=== PATIENT | female | born 2000 | race Caucasian/White ===

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

== ENCOUNTER → 2018-07-16 16:42 | Outpatient (CLI) | payer MEDICAID, SELFPAY ==
[2017-12-23 12:08] VITALS: BMI 45.5
[2018-07-16 20:29] LABS: Chlamydia Trachomatis by PCR Negative (Negative); Neisserai gonorrhoeae by PCR Negative (Negative); Probe Check PASS; Sample Adequacy Control PASS; Specimen Processing Control PASS
== END ==
PROVIDERS: Visit Provider Obstetrics & Gynecology
DX: Z11.3 Encounter for screening for infections with a predominantly sexual mode of transmission (principal)
CPT/HCPCS: 87491; 87591

== ENCOUNTER 2018-11-01 11:00 | Outpatient (RCR) | payer MEDICAID, SELFPAY | END 2018-11-02 23:59 | LOC: NS 11:00 | PROVIDERS: Visit Provider Family Medicine | DX: E66.01 Morbid (severe) obesity due to excess calories (principal); Z71.3 Dietary counseling and surveillance | CPT/HCPCS: 97802; 97803 ==

== ENCOUNTER 2018-11-14 19:52 | Emergency (ER) | payer MEDICAID, SELFPAY ==
[2018-11-14 19:56] VITALS: BP 146/78; PULSE 88; RESP 16; TEMP 37.5; O2SAT 96; BMI 37.1
--- NOTE | 2018-11-14 20:11 | ED.DCSUM_ITS ---
- ER Visit Summary Date of Service: 11/14/18 Chief Complaint: Hand rash History of Present Illness: The patient is a 18 F who has a rash on her bilateral hands. Is been there for a month. She states that there is been some drainage coming out of it recently. She states that they do itch. She states that she believes is eczema. She does wear gloves at work which could be contributing to this. She states the drainage was a yellowish color. She denies any fevers. She has never had this before. Physical Examination: Vital signs reviewed. Bilateral hand exam reveals eczema on the fingers and the palm on the left hand. There are cellulitic changes with redness. There is no drainage currently. There are no abscesses. They are diffusely tender to palpation. Test Results: None performed Emergency Department Course and Treatment: Patient will be given Keflex. There are no abscesses that need to be drained at this time. Patient will be discharged with some hydrocortisone cream to put directly on this when the infection clears. She will need to follow-up with a web press operator assistant as well. Treatment Plan: [] Disposition: Discharge Impression: Bilateral hand cellulitis Bilateral hand eczema This note was generated with [employer] dictation software. It may contain incorrect words, spelling, and punctuation that were not noted in review of the chart prior to signing
--- NOTE | 2018-11-14 20:11 | ED.DEP ---
ED Disposition - Plan for ED Patient: Disposition: Home or Assisted Living Instructions: ED Dermatitis Atopic Eczema Prescriptions: Cephalexin [Keflex] 500 mg PO Q12 #14 cap Hydrocortisone 1% Crm [Hytone] 1 applic TOPICAL BID #1 tube Referrals: Octavio Oliva MD [STAFF PHYSICIAN] -
[2018-11-14] MEDS: Cephalexin 250 MG Capsule 500 MG PO (20:17)
[2018-11-14 20:19] VITALS: BP 146/78
== END 2018-11-14 20:22 | disposition home or self-care (01) ==
LOC: ED 20:21
PROVIDERS: Emergency Provider Emergency Medicine
DX: L03.114 Cellulitis of left upper limb (principal); L03.113 Cellulitis of right upper limb; L30.9 Dermatitis, unspecified; Z72.0 Tobacco use
CPT/HCPCS: 99283

== ENCOUNTER 2018-11-21 18:23 | Emergency (ER) | payer MEDICAID, SELFPAY ==
[2018-11-21 18:23] VITALS: BP 149/70; PULSE 83; RESP 16; TEMP 36.4; O2SAT 98; BMI 36.3
--- NOTE | 2018-11-21 18:41 | ED.VIS.EYE ---
History of Present Illness Chief Complaint: Eye Problem Informant: Patient Location: Right Eye Onset: Today - JPTA, Hours - 1 Context: Sudden Onset - while walking into store; very windy outside Timing: Continuous Current Severity: Moderate Maximum Severity: Moderate Worsened by: trying to keep eye open Relieved by: closing eye Associated Symptoms - Eyes: Foreign body sensation, Photophobia, Redness History of injury: Uncertain Visual correction: None Narrative: No vision changes or discharge. Sudden onset symptoms, foreign body sensation is the main one. - Past Medical History (1) Eczema Status: Chronic Past Medical History - Allergies and Home Meds Allergies/Adverse Reactions: Allergies No Known Allergies Allergy (Verified 11/21/18 18:23) Primary Care Physician: Brianne Oliva [Primary Care Provider] - Smoking Status: Current every day smoker Drugs: None Review of Systems Eyes: Reports: - - right eye pain and FB sens. Denies: Visual changes - bilaterally, Diplopia Gastrointestinal: Denies: Nausea, Vomiting Physical Exam Visual Acuity: Uncorrected Eyelid: Right eyelid everted - punctate black FB seen and gently removed with cotton swab Right Conjunctiva/Sclera: Diffuse focal injection - diffuse conj injection Left Conjunctiva/Sclera: Normal inspection Right Cornea: Normal inspection, No foreign body, No abrasion, No dye uptake, Tetracaine instilled Extraocular Motion: Normal exam, No pain, No palsy, No nystagmus Anterior chamber: Normal exam, Deep and quiet - w/o cell or flare seen Vital Signs/Narrative: Vital Signs Temp Pulse Resp BP Pulse Ox 11/21/18 18:23 97.6 F L 83 16 149/70 H 98 Inital Vital Signs reviewed: Yes General: Well nourished, Well developed, Obese Head: Normocephalic, Atraumatic ENT: Moist mucous membranes, No rhinorrhea Neck: Supple, Nontender Skin: Normal color, No rash, No Trauma, - - erythema around right eye w/o edema; pt holding/rubbing this area. Neurological: Alert, Oriented x3, Cranial nerves II-XII grossly intact, Normal Strength, Normal Sensation, Normal Gait Psychological: Normal affect Diagnostic/Tx/Re-eval - Treatment and Re-Evaluation Foreign body removal: Cotton tip swab Tetracaine: right eye - w/ significant improvement - Medical Decision Making After foreign body removal, slit-lamp exam shows no abrasion or diet uptake. I do not think she will need any antibiotic to her eye for that reason, if she has persistent symptoms more than a day, she should either return or follow-up with ophthalmology. ED Disposition - Plan for ED Patient: Disposition: Home or Assisted Living Diagnosis: Foreign body of right eye Instructions: ED Foreign Body Cornea Referrals: Brianne Oliva [Primary Care Provider] - Charles Huynh MD [STAFF PHYSICIAN] - 3-5 Days if not improving
[2018-11-21 18:58] VITALS: RESP 16
[2018-11-21] MEDS: Tetracaine 0.5% Ophthalmic Bottle 3 DRP RIGHT EYE (18:58)
[2018-11-21] MEDS: Fluorescein 1 MG STRIP 1 STRIP RIGHT EYE (20:22)
[2018-11-21 20:46] VITALS: BP 140/87; PULSE 60; RESP 18; O2SAT 98
== END 2018-11-21 20:46 | disposition home or self-care (01) ==
PROVIDERS: Emergency Provider Emergency Medicine
DX: T15.91XA Foreign body on external eye, part unspecified, right eye, initial encounter (principal); X58.XXXA Exposure to other specified factors, initial encounter; Y93.01 Activity, walking, marching and hiking; Y92.9 Unspecified place or not applicable; E66.9 Obesity, unspecified; F17.200 Nicotine dependence, unspecified, uncomplicated
CPT/HCPCS: 99283

== ENCOUNTER 2018-11-23 11:28 | Outpatient (RCR) | payer MEDICAID, SELFPAY ==
[2017-12-23 12:08] VITALS: BMI 45.5
== END 2018-12-03 23:59 ==
LOC: NS 11:28
PROVIDERS: Visit Provider Family Medicine
DX: E66.01 Morbid (severe) obesity due to excess calories (principal); Z71.3 Dietary counseling and surveillance
CPT/HCPCS: 97803

== ENCOUNTER 2018-12-14 12:51 | Emergency (ER) | payer MEDICAID, SELFPAY ==
[2018-12-14 12:53] VITALS: BP 124/69; PULSE 80; RESP 18; TEMP 36.6; O2SAT 96; BMI 34.9
[2018-12-14 13:38] VITALS: BP 121/70; PULSE 75; RESP 15; O2SAT 99
--- NOTE | 2018-12-14 14:13 | ED.DCSUM_ITS ---
History of Present Illness Chief Complaint: Wound Check Informant: Patient Onset: Days Context: Gradual Onset Timing: Continuous Quality: Eczema, which has become infected Location: right and left hand Current Severity: Moderate Maximum Severity: Moderate Worsened by: Possibly chlorine Relieved by: Nothing Associated Symptoms: Swelling pain medial aspect of the left elbow Narrative: Patient is a 18-year-old female who is right-hand dominant who has history of eczema. She was diagnosed with eczema a while ago. She presents because of pustules palm of left hand and swelling with pain medial side of left elbow. She denies fever, chills or night sweats. She denies being immune suppressed. There is no history rheumatic fever, murmur, SBE or IV drug use. Prior similar symptoms: No Recent Illness/Hospitalization: No Past Medical History - Allergies and Home Meds Allergies/Adverse Reactions: Allergies No Known Allergies Allergy (Verified 12/14/18 12:55) Primary Care Physician: Brianne Oliva [Primary Care Provider] - Prior records reviewed: Yes Lives: With Family Smoking Status: Current every day smoker Alcohol: Rare Review of Systems General: Denies: Chills, Fever, Malaise, Subjective, Sweats Musculoskeletal: Reports: Swelling, Extremity Pain. Denies: Myalgias, Arthralgias, Neck pain, Back pain Skin: Reports: Rash, Wounds Neurological: Denies: Weakness, Parasthesia, Numbness Hematologic: Denies: Easy bruising, Easy bleeding Allergy: Denies: Uticaria, Swelling of the mouth Physical Exam Vital Signs/Narrative: Vital Signs Temp Pulse Resp BP Pulse Ox 12/14/18 13:38 75 15 121/70 H 99 12/14/18 12:53 97.9 F 80 18 124/69 H 96 Inital Vital Signs reviewed: Yes General: Well nourished, Well developed, No Acute Distress Head: Normocephalic, Atraumatic Eyes: Perrl, EOMI. Negative for: Pale conjunctiva, Scleral icterus, - ENT: Moist mucous membranes, No rhinorrhea Neck: Supple, Nontender Cardiovascular: Regular rate, Regular rhythm Respiratory: No distress Extremities: No edema, Tenderness - Tenderness epitrochlear nodes left. Negative for: Nontender Skin: Normal color, Rash - Does have eczema. She has infected pustules related to her eczema palm of left hand.. Negative for: Cyanosis, Diaphoresis, Jaundice Neurological: Alert, Oriented x3, Cranial nerves II-XII grossly intact, Normal Strength, Normal Sensation Psychological: Normal affect, Normal Mood Diagnostic/Tx/Re-eval - Medical Decision Making Patient with eczema that has become infected. Pustules/blisters were unroofed with release of purulent material. There is no lymphangitis. There is epitrochlear lymphadenopathy. There is slight erythema base of the 1 lesion left palm in the proximity of the fourth metacarpal head. There is no neurovascular compromise to her digits. Plan is to treat with doxycycline and follow-up with your PCP in 2 to 3 days for wound check. Procedures Procedure(s): Large pustules were unroofed with release of purulent material. This was in confined to the epidermis. ED Disposition - Plan for ED Patient: Diagnosis: Pustular rash, Eczema of both hands Instructions: ED Infec Skin Cellulitis Prescriptions: Doxycycline 100 mg PO BID #14 capsule Referrals: Brianne Oliva [Primary Care Provider] - 2 Days for wound check Additional Instructions: Your prescription was electronically transmitted to [facility]; the pharmacy you designated as your preferred pharmacy
[2018-12-14] MEDS: Doxycycline 100 MG CAPSULE PO (14:30)
[2018-12-14 14:33] VITALS: PULSE 83; RESP 14; O2SAT 99
== END 2018-12-14 14:36 | disposition home or self-care (01) ==
LOC: ED 14:18
PROVIDERS: Emergency Provider Emergency Medicine
DX: L08.9 Local infection of the skin and subcutaneous tissue, unspecified (principal); L30.3 Infective dermatitis; F17.200 Nicotine dependence, unspecified, uncomplicated
CPT/HCPCS: 10140; 10060; 99282

== ENCOUNTER 2018-12-21 10:00 | Outpatient (RCR) | payer MEDICAID, SELFPAY | END 2019-01-02 23:59 | LOC: NS 10:00 | PROVIDERS: Visit Provider Family Medicine | DX: E66.01 Morbid (severe) obesity due to excess calories (principal); Z71.3 Dietary counseling and surveillance | CPT/HCPCS: 97803 ==

== ENCOUNTER 2019-01-03 18:34 | Emergency (ER) | payer MEDICAID, SELFPAY ==
[2019-01-03 18:35] VITALS: BP 126/72; PULSE 83; RESP 15; TEMP 36.4; O2SAT 98; BMI 35.4
--- NOTE | 2019-01-03 19:59 | CT_ITS ---
STUDY: CT ABDOMEN AND PELVIS WITHOUT CONTRAST REASON FOR EXAM: Female, 18 years old. Left upper quadrant pain x1 day RADIATION DOSAGE (If Supplied By Facility): CTDIvol = ( 16.51 ) mGy, DLP = ( 911.59 ) mGycm TECHNIQUE: Transaxial images were obtained from the dome of the diaphragm to the symphysis pubis without oral contrast, and without intravenous contrast. Sagittal and coronal images were reconstructed. Individualized dose optimization techniques were used for this CT. COMPARISON: None. FINDINGS: The visualized lung bases are unremarkable. The visualized portions of the heart are within normal limits. Normal liver. The gallbladder is contracted. There is mild splenomegaly. Normal pancreas. Normal bilateral adrenal glands. Normal right kidney. Normal left kidney. Normal visualized stomach. Normal small intestine. Normal colon. The appendix is visualized and appears normal. Normal abdominal aorta. Normal inferior vena cava. Normal retroperitoneum. Normal urinary bladder. Normal visualized uterus. Normal abdominal wall. Normal osseous structures. CT/Abdomen/Pelvis without Cont IMPRESSION: Mild splenomegaly. Remainder is within normal limits for age. Electronically Signed: Kings Hernandez DO at 21:25 EDT Tel , Service support ,
[2019-01-03] MEDS: 0.9% Normal Saline 1,000 ML 125 ML IV (20:17)
[2019-01-03 20:29] LABS: Absolute Lymphocyte Count 1.88 X10^3/ul (0.83-4.51); Absolute Neutrophil Count 6.4 X10^3/uL (2.0-7.7); Basophil# 0.02 X10^3/uL; Basophil% 0.2 % (0-1); Eosinophil# 0.21 X10^3/uL; Eosinophils% 2.3 % (0-5); Hematocrit 37.5 % (37-47); Hemoglobin 12.1 g/dl (12.0-15.0); Lymphocyte # 1.88 X10^3/ul (4.0); Lymphocyte % 20.4 % (19-41); Mean Corp Hgb Conc 32.3 g/gl (32-36); Mean Corpuscular Hgb 25.1 pg (27.0-32.0); Mean Corpuscular Volume 77.8 fL (81-99); Mean Platelet Vol. 10.4 fl (6.2-12.0); Monocyte% 7.6 % (0-10); Neutrophil # 6.38 X10^3/uL (2.7-7.7); Neutrophil % 69.3 % (47-70); POSITIVE COUNT NO; POSITIVE DIFFERENTIAL NO; POSITIVE MORPHOLOGY NO; Platelet Count 192 K/mm3 (150-450); RBC Distribution Width CV 14.6 % (11.6-14.6); RBC Distribution Width SD 41.1 fl (35.1-43.9); Red Blood Count 4.82 M/mm3 (4.2-5.4); White Blood Count 9.2 K/mm3 (4.4-11.0)
[2019-01-03 20:47] LABS: AST(SGOT) 11 U/L (15-37); Alanine Aminotransfer ALT/SGPT 15 U/L (13-56); Albumin, Serum 3.7 g/dL (3.2-5.0); Alkaline Phosphatase 61 U/L (45-117); Anion Gap 5 (5-15); BUN 24 mg/dL (7-18); BUN/Creat Ratio 29.3 RATIO (10-20); Calcium,Total 8.9 mg/dL (8.5-10.1); Chloride 109 mmol/L (98-107); Creatinine, Serum 0.82 mg/dL (0.55-1.02); EST Glomerular Filtration Rate 94 mL/min (>60); Est Glom Filt Rate - Afr Amer 114 mL/min (>60); Globulin 3.7 g/dL (2.2-4.2); Glucose 86 mg/dL (74-106); Lipase 122 U/L (73-393); Potassium 3.7 mmol/L (3.5-5.1); Protein, Total 7.4 g/dL (6.4-8.2); Sodium Level 140 mmol/L (136-145)
[2019-01-03 20:51] LABS: Internal QC Validated? YES +Cl - CLEAR BKGD; Pregnancy, Serum, hCG Quali. NEGATIVE Negative
[2019-01-03 21:53] LABS: Bacteria 0 SEEN /hpf (None Seen); Mucous, Urine 0 SEEN /hpf (<or=2+); Red Blood Cells-Urine 0 SEEN /hpf (0-5)
[2019-01-03 22:05] LABS: Color, Urine Yellow (Yellow); Glucose, Dipstick Normal (Normal); Ketone-Dipstick Negative (Negative); Leukocyte Esterase-Dipstick 500 /ul (Negative); Nitrite-Dipstick Negative (Negative); Occult Blood-Urine Negative /ul (Negative); Protein-Dipstick 15 mg/dl (Negative); Specific Gravity, Urine 1.015 (1.002-1.030); Urine Bilirubin Dipstick Negative (Negative); Urine Clarity Sl. Cloudy (Clear); Urine Urobilinogen 1 mg/dl (Normal)
[2019-01-03 22:07] LABS: Amorphous Sediment 1+ PHOS; Squamous Epithelial Cells - UA 10-25 SEEN /hpf (5-10); White Blood Cells 10-25 SEEN /hpf (0-5)
--- NOTE | 2019-01-03 22:17 | ED.DCSUM_ITS ---
- ER Visit Summary Date of Service: 01/03/19 Chief Complaint: [Abdominal pain] History of Present Illness: The patient is a 18 F [this with abdominal pain that started around 8 PM yesterday. Patient states that discomfort is been continuous and rates it currently is about a 6 out of 10 mostly to the left u pper quadrant into her left back. Patient denies any urinary symptoms. She has had no fever. Her last menstrual period was about a month ago. She does not think she is . Patient has history of eczema otherwise no medical problems. She said no prior surgeries other than a .] Physical Examination: [HEENT-PERRLA, EOMI. Cranial nerves II through XII grossl y intact. TMs clear. Mucous membranes moist. No adenopathy. Cardiovascular-regular rate and rhythm without murmur or ectopy Lungs-clear to auscultation, chest wall stable without crepitus or subcu emphysema Abdomen-normoactive bowel sounds, soft. Patient has tenderness to palpation over left upper quadrant and some mild CVA tenderness on the left. There is no rebound, rigidity, cranial signs. Extremities-intact ?4, normal range of motion, normal pulses, atraumatic] Test Results: [CBC with differential obtained was normal. Chemistries normal. LFTs normal. hCG was negative. CT flank showed nothing acute. Analysis showed 500 leukocyte esterase and 1025 white blood cells and 10 from 25 RBCs.] Emergency Department Course and Treatment: [Patient was started on Bactrim and Azo] Treatment Plan: [Be treated with Bactrim and Pyridium. Patient advised to push fluids. Patient advised to follow-up with primary care physician the next 3 to 5 days. To return if worsening pain, fever, vomiting, or conditions worsen anyway.] Disposition: [Discharged home stable condition.] Impression: [Abdominal pain UTI] This note was generated with [employer] dictation software. It may contain incorrect words, spelling, and punctuation that were not noted in review of the chart prior to signing ED Disposition - Plan for ED Patient: Referrals: Brianne Oliva [Primary Care Provider] -
--- NOTE | 2019-01-03 22:19 | ED.DEP ---
ED Disposition - Plan for ED Patient: Instructions: ABDOMINAL PAIN, Unknown Cause, (Female), Bladder Infection, Female (Adult) Prescriptions: Smz/Tmp Ds [Bactrim Ds] 1 tab PO BID #6 tab Prescription Printed Phenazopyridine HCl [Pyridium] 200 mg PO BID PRN PRN #10 tab PRN Reason: Pain Prescription Printed Referrals: Brianne Oliva [Primary Care Provider] - 3-5 Days
[2019-01-03 23:13] VITALS: BP 136/74; PULSE 79; RESP 18; O2SAT 97
== END 2019-01-03 23:13 | disposition home or self-care (01) ==
LOC: ED 20:17
PROVIDERS: Emergency Provider Emergency Medicine
DX: N39.0 Urinary tract infection, site not specified (principal); R10.12 Left upper quadrant pain; Z72.0 Tobacco use
CPT/HCPCS: 74176; 80053; 81001; 83690; 84703; 85025; 96360; 96361; 99284; J7030

== ENCOUNTER → 2019-01-20 15:32 | Outpatient (CLI) | payer MEDICAID, SELFPAY ==
[2019-01-03 18:35] VITALS: BMI 35.4
[2019-01-20 22:13] LABS: Chlamydia Trachomatis by PCR Negative (Negative); Neisserai gonorrhoeae by PCR Negative (Negative); Probe Check PASS; Sample Adequacy Control PASS; Specimen Processing Control PASS
== END ==
PROVIDERS: Visit Provider Obstetrics & Gynecology
DX: Z11.3 Encounter for screening for infections with a predominantly sexual mode of transmission (principal)
CPT/HCPCS: 87491; 87591

== ENCOUNTER 2019-01-29 23:32 | Emergency (ER) | payer MEDICAID, SELFPAY ==
[2019-01-29 23:34] VITALS: BP 124/71; PULSE 65; RESP 15; TEMP 36.3; O2SAT 99; BMI 33.4
--- NOTE | 2019-01-29 23:49 | ED.VIS.GEN ---
History of Present Illness Chief Complaint: Complaint Informant: Patient Onset: Weeks - 1 Narrative: One-week history dysuria and malodorous urine. Hematuria. Intermittent nausea. No fevers. History UTI in the past last time was 2 weeks ago per patient. Last menstrual period December 14. States had a baby 13 months ago, menstrual periods have been abnormal. Also reports there was 2+ home test recently with one negative. Seen OB doctor [place]. In addition reports exposed to chlamydia and significant other who was diagnosed recently. No vomiting or diarrhea. No allergies. Prior similar symptoms: Yes Past Medical History - Allergies and Home Meds Allergies/Adverse Reactions: Allergies No Known Allergies Allergy (Verified 01/29/19 23:37) Smoking Status: Current every day smoker Review of Systems All systems negative except as indicated General: Denies: Chills, Fever, Sweats Eyes: Denies: Visual changes - bilaterally, Diplopia ENT: Denies: Rhinorrhea, Sore throat Cardiovascular: Denies: Chest pain, Palpitations Respiratory: Denies: Dyspnea, Cough, Dyspnea on exertion Gastrointestinal: Denies: Abdominal pain, Nausea, Vomiting, Diarrhea, Melena, Hematochezia Genitourinary: Reports: Dysuria, Hematuria. Denies: Frequency Musculoskeletal: Denies: Back pain, Extremity Pain Skin: Denies: Rash, Wounds Neurological: Denies: Headache, Weakness, Numbness Physical Exam Vital Signs/Narrative: Vital Signs Temp Pulse Resp BP Pulse Ox 01/29/19 23:34 97.4 F L 65 15 124/71 H 99 Inital Vital Signs reviewed: Yes General: Well nourished, Well developed, No Acute Distress Head: Normocephalic, Atraumatic Eyes: Perrl, EOMI ENT: Moist mucous membranes, No rhinorrhea Neck: Supple, Nontender Cardiovascular: Regular rate, Regular rhythm, No murmurs Respiratory: No distress, CTA bilaterally, Chest nontender Abdomen: Soft, Nontender, Nondistended, Normal bowel sounds Back: Nontender, Normal Inspection. Negative for: CVA tenderness Extremities: Nontender, No edema Skin: Normal color, No rash Neurological: Alert, Oriented x3, Cranial nerves II-XII grossly intact, Normal Strength, Normal Sensation Psychological: Normal affect, Normal Mood Diagnostic/Tx/Re-eval Abnormal Lab Results 01/30/19 00:14 Urine Color Yellow Urine Clarity Sl. Cloudy Urine pH 5.0 Ur Specific [place] 1.025 Urine Protein 15 H Urine Glucose (UA) Normal Urine Ketones 5 H Urine Occult Blood 150 H Urine Nitrite Positive H Urine Bilirubin Negative Urine Urobilinogen Normal Ur Leukocyte Esterase 500 H Urine RBC 5-10 SEEN Urine WBC 50-100 SEEN Ur Squamous Epith Cells 10-25 SEEN Urine Bacteria 4+ Urine Mucus 0 SEEN Urine Test Negative - Medical Decision Making Patient nontoxic. Urine did confirm UTI. With recurrent infection I did send for urine culture. She started on Keflex. Urine GC chlamydia was sent due to the concerns of STD. On repeat discussion, significant other was treated for chlamydia and gonorrhea however labs were not done to confirm. She is concerned wanting treatment Rocephin and Zithromax was given. was negative. Continue antibiotics and Pyridium given for symptom control. Follow-up as an outpatient. ED Disposition - Plan for ED Patient: Disposition: Home or Assisted Living Diagnosis: Urinary tract infection, Concern about STD in female without diagnosis Instructions: Bladder Infection, Female (Adult) Prescriptions: Cephalexin [Keflex] 500 mg PO Q12 #14 capsule Phenazopyridine HCl [Pyridium] 200 mg PO TID #6 tablet Referrals: LILIAN DODD [Other] - 3-5 Days if not improving
[2019-01-30] MEDS: Azithromycin 250 MG Tablet 1000 MG PO (00:05)
[2019-01-30 00:26] LABS: Mucous, Urine 0 SEEN /hpf (<or=2+)
[2019-01-30 00:31] LABS: Color, Urine Yellow (Yellow); Glucose, Dipstick Normal (Normal); Ketone-Dipstick 5 mg/dl (Negative); Leukocyte Esterase-Dipstick 500 /ul (Negative); Nitrite-Dipstick Positive (Negative); Occult Blood-Urine 150 /ul (Negative); Protein-Dipstick 15 mg/dl (Negative); Specific Gravity, Urine 1.025 (1.002-1.030); Urine Bilirubin Dipstick Negative (Negative); Urine Clarity Sl. Cloudy (Clear); Urine Urobilinogen Normal (Normal)
[2019-01-30 00:37] LABS: Bacteria 4+ /hpf (None Seen); Internal QC Validated? YES +Cl - CLEAR BKGD; Pregnancy, Urine Negative Negative; Red Blood Cells-Urine 5-10 SEEN /hpf (0-5); Squamous Epithelial Cells - UA 10-25 SEEN /hpf (5-10); White Blood Cells 50-100 SEEN /hpf (0-5)
[2019-01-30] MEDS: Cephalexin 250 MG Capsule 500 MG PO (01:25)
[2019-01-30 02:00] LABS: Chlamydia Trachomatis by PCR Negative (Negative); Neisserai gonorrhoeae by PCR Negative (Negative); Probe Check PASS; Sample Adequacy Control PASS; Specimen Processing Control PASS
[2019-01-30 02:33] VITALS: RESP 16
== END 2019-01-30 02:33 | disposition home or self-care (01) ==
PROVIDERS: Emergency Provider Emergency Medicine
DX: N39.0 Urinary tract infection, site not specified (principal); Z20.2 Contact with and (suspected) exposure to infections with a predominantly sexual mode of transmission; F17.200 Nicotine dependence, unspecified, uncomplicated; Z87.440 Personal history of urinary (tract) infections
CPT/HCPCS: 81001; 81025; 87086; 87088; 87186; 87491; 87591; 96372; 99283

== ENCOUNTER 2019-01-31 17:00 | Outpatient (RCR) | payer MEDICAID, SELFPAY | END 2019-01-31 23:59 | disposition home or self-care (01) | LOC: NS 17:00 | PROVIDERS: Visit Provider Family Medicine | DX: E66.01 Morbid (severe) obesity due to excess calories (principal); Z71.3 Dietary counseling and surveillance | CPT/HCPCS: 97803 ==

== ENCOUNTER 2019-02-23 19:36 | Emergency (ER) | payer MEDICAID, SELFPAY ==
[2019-02-23 19:39] VITALS: BP 115/57; PULSE 68; RESP 18; TEMP 36.2; O2SAT 96; BMI 34.9
--- NOTE | 2019-02-23 20:03 | ED.VIS.GEN ---
History of Present Illness Chief Complaint: Wound Informant: Patient Onset: Month(s) - Rash involving both hands Context: Sudden Onset - 1 week after delivery of child Timing: Continuous Quality: Flaky itchy skin Location: Right and left hand and fingers Current Severity: Moderate Maximum Severity: Moderate Worsened by: Nothing Relieved by: Nothing Associated Symptoms: Symptoms of Narrative: Patient is a 18-year-old who is sexually active. She does not recall when her last menses was. She believes it may have been made. She does report breast tenderness, frequency, weight gain and intermittent nausea. She denies fever, chills or night sweats. She states I have seen her in the past for her rash. She has no other complaints. Prior similar symptoms: Yes Recent Illness/Hospitalization: Yes - Past Medical History (1) Eczema Status: Chronic Past Medical History - Allergies and Home Meds Allergies/Adverse Reactions: Allergies No Known Allergies Allergy (Verified 02/23/19 19:39) Primary Care Physician: Care Physician,No Primary [Primary Care Provider] - Prior records reviewed: Yes Surgical History: noncontributory Lives: Spouse/ Significant Other, With Family Smoking Status: Current every day smoker Alcohol: Rare Drugs: None Review of Systems General: Denies: Chills, Fever, Malaise, Subjective, Sweats, Weight loss, - Eyes: Denies: Visual changes - bilaterally, Blurred Vision - bilaterally ENT: Denies: Rhinorrhea, Sore throat Cardiovascular: Denies: Chest pain, Palpitations Respiratory: Denies: Dyspnea, Cough, Dyspnea on exertion Gastrointestinal: Reports: Nausea. Denies: Abdominal pain, Vomiting, Diarrhea, Constipation, Melena, Hematochezia, -, - Genitourinary: Reports: Frequency. Denies: Dysuria, Hematuria, -, - Musculoskeletal: Denies: Myalgias, Arthralgias, Neck pain, Back pain, Swelling, Extremity Pain, -, - Skin: Denies: Rash, Wounds Neurological: Denies: Headache, Weakness, Numbness Hematologic: Denies: Easy bruising, Easy bleeding, Lymphadenopathy, -, - Physical Exam Vital Signs/Narrative: Vital Signs Temp Pulse Resp BP Pulse Ox 02/23/19 19:39 97.2 F L 68 18 115/57 L 96 Inital Vital Signs reviewed: Yes General: Well nourished, Well developed, No Acute Distress Head: Normocephalic, Atraumatic Eyes: Perrl, EOMI ENT: Moist mucous membranes, No rhinorrhea Neck: Supple, Nontender Cardiovascular: Regular rate, Regular rhythm, No murmurs Respiratory: No distress, CTA bilaterally, Chest nontender Abdomen: Soft, Nontender, Nondistended, Normal bowel sounds Back: Nontender, Normal Inspection Extremities: Nontender, No edema Skin: Normal color, No rash, Rash - Dyshidrotic eczema involving right and left hand and fingers Neurological: Alert, Oriented x3, Cranial nerves II-XII grossly intact, Normal Strength, Normal Sensation Psychological: Normal affect, Normal Mood Diagnostic/Tx/Re-eval Laboratory Results 02/23/19 20:05 HCG, Quant 4063 H Quantitative hCG is slightly greater than 4000 which would estimate gestational age to 4 to 5 weeks. This is not consistent with her dates. She was instructed to follow-up with her field crew chief. - Medical Decision Making Esposito has symptoms of . Since menses is unknown serum quantitative hCG was obtained. She will be referred to her field crew chief, Dr. Trina Mao. Patient has no abdominal pain, pain referred to her shoulder, orthostatic symptoms, vaginal bleeding she was referred to her field crew chief for care. Since she has no pain, orthostatic symptoms ultrasound is not indicated and there is no concern for ectopic at this time. ED Disposition - Plan for ED Patient: Disposition: Home or Assisted Living Diagnosis: Dyshidrotic eczema, First trimester Instructions: Managing Atopic Dermatitis, : Your First Trimester Changes Referrals: Care Physician,No Primary [Primary Care Provider] - Trina Mao MD [STAFF PHYSICIAN] - 1-2 Weeks Additional Instructions: Apply Eucerin cream 3 times a day. Recommend wearing white cotton gloves after application of Eucerin when going to bed.
[2019-02-23 21:03] LABS: hCG Titer Quant., Serum 4063 mIU/mL (1-3)
== END 2019-02-23 22:06 | disposition home or self-care (01) ==
PROVIDERS: Emergency Provider Emergency Medicine
DX: O99.89 Other specified diseases and conditions complicating pregnancy, childbirth and the puerperium (principal); L30.1 Dyshidrosis [pompholyx]; O99.331 Smoking (tobacco) complicating pregnancy, first trimester; F17.200 Nicotine dependence, unspecified, uncomplicated; Z3A.00 Weeks of gestation of pregnancy not specified
CPT/HCPCS: 36415; 84702; 99282

== ENCOUNTER → 2019-04-04 13:00 | Outpatient (CLI) | payer MEDICAID, SELFPAY | PROVIDERS: Family Provider Family Medicine; PCP Family Medicine; Referring Provider Obstetrics & Gynecology; Visit Provider Obstetrics & Gynecology | DX: Z31.430 Encounter of female for testing for genetic disease carrier status for procreative management (principal) | CPT/HCPCS: 36415 ==

== ENCOUNTER 2019-08-24 19:25 | Outpatient (CLI) | payer MEDICAID, SELFPAY ==
--- NOTE | 2019-08-26 08:14 | OB.TRI.NOTE ---
- Problem List (1) 31 weeks gestation of Status: Acute (2) Decreased movement Status: Acute History of Present Illness Date of Service: 08/24/19 Was patient seen by the physician?: No Reason For Visit: DECREASED MOVEMENT Final GILMER: 10/20/19 Final GILMER Source: US <20 weeks Gestational age: 32 Weeks and 1 Days History of Present Illness: who presented at 31w6d with DFM Allergies No Known Allergies Allergy (Verified 02/23/19 19:39) NST - FHR Rate Baby A Baseline: 120 Variability:: Moderate Accelerations:: 15 x 15 Decelerations:: None NST Reactive:: Yes Uterine Activity:: Irritability
== END 2019-08-24 21:05 | disposition home or self-care (01) ==
LOC: WPOUT 19:30 → OBT 19:31 → WP 19:38
PROVIDERS: PCP Family Medicine; Visit Provider Obstetrics & Gynecology
DX: O36.8130 Decreased fetal movements, third trimester, not applicable or unspecified (principal); Z3A.32 32 weeks gestation of pregnancy

== ENCOUNTER 2019-10-13 04:55 | Inpatient (IN) | payer MEDICAID, SELFPAY ==
--- NOTE | 2019-10-07 16:46 | HP.PCM_ITS ---
History and Physical Date of Admission: 10/13/19 Routine Office Visit 10/04/2019 OB/Gynecology Katie Taylor IT [employer] 37 weeks gestation of +2 more Dx Care ; Referred by MD Vincenzo Reason for Visit Progress Notes Expand All Collapse All Pre-Op History and Physical ? HPI: The patient is a 19 year old female presenting for pre-operative visit. She is scheduled for , for Elective Repeat cs on 10/13/19. Procedure discussed along with risks, benefits and complications. Other alternatives discussed for management. Consent form signed? Yes. ? ? PAST MEDICAL HISTORY PAST MEDICAL HISTORY Diagnosis Date ? Depression ? ? Eczema ? ? fracture 2008 ? shoulder ? depression ? ? ? PAST SURGICAL HISTORY PAST SURGICAL HISTORY Procedure Laterality Date ? SECTION HX ? ? ? TONSILLECTOMY HX ? CURRENT MEDICATIONS Current Outpatient Medications Medication Sig Dispense Refill ? ferrous sulfate 325 mg (65 mg iron) tablet Take 1 tablet by mouth twice daily. 60 tablet 5 ? sertraline (ZOLOFT) 50 mg tablet Take 50 mg by mouth once daily. ? ? ? PNV NO.95/FERROUS FUM/FOLIC AC ( ORAL) Take by mouth. ? ? ? No current facility-administered medications for this visit. ? ? ALLERGIES: Cats ? PERSONAL HISTORY: SOCIAL HISTORY Social History ? Tobacco Use ? Smoking status: Former Smoker ? ? Years: 8.00 ? ? Types: Cigarettes ? ? Last attempt to quit: 02/02/2019 ? ? Years since quittin.6 ? Smokeless tobacco: Never Used Substance Use Topics ? Alcohol use: Not Currently ? Drug use: Not Currently ? ? Types: Marijuana ? ? Comment: no use x 3 years ? FAMILY HISTORY: FAMILY HISTORY FAMILY HISTORY Problem Relation Age of Onset ? No Known Problems Mother ? ? Blood Disease Father ? ? hemochromatosis ? other (sarcoidosis) Father ? ? No Known Problems Sister ? ? Asthma Brother ? ? Hypertension Maternal Grandmother ? ? Heart Attack Maternal Grandfather ? ? other (hemochromatosis) Paternal Grandmother ? ? other (Sarcoidosis) Paternal Grandmother ? ? No Known Problems Paternal Grandfather ? ? No Known Problems Sister ? ? No Known Problems Brother ? ? No Known Problems Brother ? ? No Known Problems Son ? ? ? REVIEW OF SYMPTOMS: negative except as noted above PHYSICAL EXAMINATION: ? VITALS: Blood pressure 118/68, weight 278 lb (126.1 kg), last menstrual period 01/13/2019, not currently . ? GENERAL: The patient is well nourished, well hydrated in no acute distress. , The patient is oriented to time, place, and person. NECK: full range of motion Abdomen: soft, gravid, non tender. ? IMPRESSION: 19yo @ 37.5 wks- scheduled for repeat elective cs at 39 weeks gestation ? PLAN: 19yo @ 37.5 wks ? Pt has been counseled on risks/benefits and alternatives of surgery including but not limited to anesthesia, bleeding, infection, injury to pelvic structures including bowel, bladder, ureters and vessels. Pt wishes to proceed with surgery at this time. ? Consent signed. ? ? I have reviewed and updated past medical and surgical history, medications and allergies Katie Taylor MD
[2019-10-13] VITALS (16 sets, daily range): BP systolic 102–134; BP diastolic 49–86; PULSE 77–93; RESP 14–19; TEMP 36.3–37.1; O2SAT 95–99; BMI 43.4
[2019-10-13] MEDS: Lactated Ringers 1,000 ML 999 ML IV (05:25)
[2019-10-13 06:20] LABS: Absolute Lymphocyte Count 1.36 X10^3/uL (0.83-4.51); Absolute Neutrophil Count 7.9 X10^3/uL (2.0-7.7); Basophil# 0.02 X10^3/uL; Basophil% 0.2 % (0-1); Eosinophil# 0.13 X10^3/uL; Eosinophils% 1.3 % (0-5); Lymphocyte # 1.36 X10^3/ul (4.0); Lymphocyte % 13.2 % (19-41); Mean Corp Hgb Conc 30.3 g/dL (32-36); Mean Corpuscular Hgb 23.5 pg (27.0-32.0); Mean Corpuscular Volume 77.5 fL (81-99); Mean Platelet Vol. 11.2 fl (6.2-12.0); Monocyte# 0.85 X10^3/uL; Monocyte% 8.2 % (0-10); NRBC Flagged by Analyzer 0 % (0-5); Neutrophil # 7.91 X10^3/uL (2.7-7.7); Neutrophil % 76.4 % (47-70); Platelet Count 146 K/mm3 (150-450); RBC Distribution Width CV 15.3 % (11.6-14.6); RBC Distribution Width SD 41.5 fl (35.1-43.9); Red Blood Count 4.26 M/mm3 (4.2-5.4); White Blood Count 10.3 K/mm3 (4.4-11.0)
[2019-10-13] MEDS: Sodium Citrate/Citric Acid 30 ML UDC PO (07:03)
--- NOTE | 2019-10-13 08:13 | PCM.OPRPT ---
Delivery Classification: Scheduled Final GILMER: 10/20/19 Final GILMER Source: US <20 weeks Gestational age: 39 Weeks and 0 Days public health worker: Lori Reagan Type of Anesthesia:: Spinal Date of Procedure: 10/13/19 Pre-Operative Diagnosis: term gestation, elective repeat cs Post-Operative Diagnosis: same, live male infant Indications for : Repeat Elective Description of Procedure: After informed consent was obtained the patient was taken the operating room she was given spinal anesthesia. She was then placed in the supine position. She was prepped and draped in the normal sterile fashion. Anesthesia was found to be adequate. At this time a Pfannenstiel skin incision was made with a knife was carried down to the underlying layer of the fascia. The fascial incision was then extended laterally using curved Briggs scissor. Attention was then turned to the superior aspect of the fascial edge was grasped with 2 straight [place] clamps tented up and the rectus muscle dissected off sharply using curved Briggs scissor. Attention was then turned to the inferior aspect where again [place] clamps were placed in the rectus muscles were tented up and the fascia was dissected off sharply using the curved Briggs scissor. Rectus muscles were then in the midline bluntly and peritoneum was entered bluntly. Gentle opposing traction was placed. At this time the vesicouterine peritoneum was identified. Vesicouterine peritoneum was taken down using the Metzenbaum scissors. Scalpel was used to make a uterine incision in a low transverse fashion. The uterus was then entered bluntly gentle opposing traction was placed to extend this incision. Membranes were ruptured clear. Infant's head was not well engaged. Had an unstable lie. Kiwi vacuum was placed at 550 mmHg two pop offs to allow stabilization of the head. Head was then delivered through the uterine incision followed by the rest the 's body. Cord was clamped and cut was handed to the waiting nursery team. True knot was noted in the cord. The Placenta was removed from the uterus. The uterus was then removed from the abdominal cavity. The uterus was cleared of all clots and debris using a lap. At this time the uterine incision was reapproximated using #1 Vicryl in a running locked fashion. Hemostasis was appreciated. Posterior cul-de-sac was then cleared of all clots and debris. Uterus was placed back in the abdominal cavity. Gutters were cleared of all clots and debris. Uterine incision was reevaluated and noted to be of excellent hemostasis. Noel placed. Tubes and ovaries were normal. At this time the peritoneum was grasped with Kellys reapproximated using #2 Vicryl suture in a running fashion. Fascia was then reapproximated using #1 PDS in a running fashion. Subcu layer was reapproximated with #2 0 plain gut suture in an interrupted fashion. Subcu layer was closed using 4-0 Monocryl in a subcu fashion. Dry sterile dressing was applied. Instrument lap needle count correct ?2. Anticipated normal postoperative course. Amniotic Fluid Description: Clear Placenta Disposition: [facility] Drain: Parker to straight drain Cord Entanglement: True Knot(s) Nuchal Cord Compression: Without compression Cord Vessel Description: 3 Vessels Esitmated Blood Loss (ml): 700 Infant Gender: Male (1 minute): 8 (5 minute): 9 Delayed cord clamping: No Antibiotic Given: Ancef 3 grams IV x1 Pt instructed on risks of surgery: Bleeding, Anesthesia Risks, Need for Future C-Sections, Injury to surrounding structure(s) including bowel and bladder Complications: None - Admit VTE Documentation VTE Present on Admission: Yes VTE Mechan Device Prophylaxis: SCD's VTE Pharm Prophylaxis ordered?: Yes
[2019-10-13] MEDS: Oxytocin 30 units/NS 500 ml 30 UNITS/500 ML IV.SOLN 167 UNITS IV (08:46)
[2019-10-13] MEDS: HYDROmorphone 1 MG/ML Syringe IV ×3 (08:53→16:38)
[2019-10-13] MEDS: Methylergonovine 0.2 MG/ML Ampul IM (09:36)
[2019-10-13] MEDS: Lactated Ringers 1,000 ML 100 ML IV ×2 (11:49→21:59)
[2019-10-13] MEDS: Ketorolac 30 MG/ML Syringe IV ×2 (13:57→21:10)
[2019-10-13] MEDS: Enoxaparin 40 MG/0.4 ML Syringe SC (21:12)
[2019-10-14] VITALS: BP 105/61; PULSE 83; RESP 20; TEMP 36.5
[2019-10-14] MEDS: Ketorolac 30 MG/ML Syringe IV ×3 (03:40→17:01)
[2019-10-14 04:00] VITALS: BP 122/71; PULSE 92; RESP 18; TEMP 36.9
[2019-10-14 07:46] VITALS: BP 121/62; PULSE 89; RESP 16; TEMP 37.4; O2SAT 95
[2019-10-14] MEDS: oxyCODONE 5 MG Tablet PO (08:27)
[2019-10-14] MEDS: 0.9% Saline Lock 10 ML Syringe IV ×3 (08:27→17:01)
[2019-10-14] MEDS: Enoxaparin 40 MG/0.4 ML Syringe SC (10:00)
--- NOTE | 2019-10-14 10:00 | DCINST_ITS ---
Discharge Diet: No Restrictions Discharge Activity: May not drive while taking narcotic pain medications., May Shower May resume sexual activity in: 6 weeks Weight Bearing Status: Weight bearing as tolerated Call your doctor if your incision/area has: Continuous Slow Oozing, Sudden Increased Bleeding, Increased Pain/ Swelling, Increased Redness, Foul Smelling Discharge, Swelling at the incision site Call your doctor if you observe: Fever of 101 or Higher, Coldness, Increased Pain, Numbness or Tingling, Change in Color, Inability to urinate, Inability to have a bowel movement, Using more than one pad per hour, Shortness of breath, Fainting spells, Chest pain, Increased palpitations (irregular heartbeat), Uncontrolled pain Suture Line Care: Avoid Pulling/Pushing, Avoid Pinching/Bending Cleanse incision/area with: Soap & Water Additional Instructions: If you experience any of the following, contact your healthcare provider. * Bleeding that soaks a pad every hour for 2 hours * Fever 100.4 or higher * Unrelieved incision or abdominal pain * Swelling, redness, discharge or bleeding from your incision or episiotomy site * Your incision begins to separate * Problems urinating (including inability to urinate or burning while urinating). * Visual changes * Severe headache * Flu-like symptoms * Pain or redness in one of both of your breasts * Pain, warmth, tenderness or swelling in your legs, especially the calf area * Frequent nausea and vomiting * Symptoms of depression or anxiety If you experience any of the following, call 911 or go to the nearest Emergency Room. * Chest pain * Problems breathing * Seizure activity * Partial or complete paralysis of a body part, slurred speech, weakness or drooping of the face, or a sudden inability to walk or hold your balance Allergies/Adverse Reactions: Allergies No Known Allergies Allergy (Verified 10/13/19 05:12) Medications to take at Discharge Ferrous Sulfate [Iron] 325 mg PO BID 10/13/19 Pnv No.95/Ferrous Fum/Folic AC [ Caplet] 1 tab PO DAILY 10/13/19 Acetaminophen [Tylenol] 1,000 mg PO Q8H PRN PRN #60 tab 10/14/19 Docusate Sodium [Colace] 100 mg PO BID PRN PRN #60 cap 10/14/19 Ibuprofen [Motrin] 600 mg PO Q6H PRN PRN #40 tab 10/14/19 Oxycodone [Oxyir] 5 mg PO Q6H PRN PRN 5 Days #20 tab 10/14/19 Sertraline HCl [Zoloft] 25 mg PO DAILY tablet 10/14/19 The following prescriptions were given: Docusate Sodium [Colace] 100 mg PO BID PRN PRN #60 cap PRN Reason: constipation Transmission Status: Sent to [facility] Ibuprofen [Motrin] 600 mg PO Q6H PRN PRN #40 tab PRN Reason: Pain Score 1-3/10 Transmission Status: Sent to [facility] Oxycodone [Oxyir] 5 mg PO Q6H PRN PRN 5 Days #20 tab PRN Reason: Pain Score 4-10/10 Transmission Status: Sent to [facility] Acetaminophen [Tylenol] 1,000 mg PO Q8H PRN PRN #60 tab PRN Reason: Pain Score 1-3/10;Temp>99.6F Transmission Status: Sent to [facility] Follow-Up: Call to make an appointment with your doctor for an incision check in 1-2 weeks. You will also need a 6 week post- follow up appointment. Test results from this visit will be discussed in further detail at your follow- up appointment, if applicable. Primary Care Physician: Jeanne Young DO [Primary Care Provider] -
--- NOTE | 2019-10-14 10:03 | PN.OBGYN_ITS ---
Subjective: Pain controlled. She is interested in discharge later today. - Physical Exam Vitals/I&O's: Vital Signs Temp Pulse Resp BP Pulse Ox 99.3 F H 89 16 121/62 H 95 10/14/19 07:46 10/14/19 07:46 10/14/19 07:46 10/14/19 07:46 10/14/19 07:46 Oxygen Delivery Method Room Air Weight: 277 lb 12.519 oz Body Mass Index (BMI) 43.4 Intake and Output for Last 24 Hours 10/12/19 10/13/19 10/14/19 23:59 23:59 23:59 Intake Total 2615 / 2615 1000 / 1000 Output Total 2400 / 2400 1200 / 1200 Balance 215 / 215 -200 / -200 General: Alert, Oriented x3 Abdomen: Soft, Non Tender, Non-Distended - ff mid & below umb; incision - bandage - c/d/i Extremities: No Calf Tenderness Neurological: Cranial nerves II-XII grossly intact Current Medications Acetaminophen (Tylenol) 1,000 mg PO Q8H PRN PRN PRN Reason: Pain Score 1-3/10;Temp>99.6F Bisacodyl (Dulcolax) 10 mg RECTAL UD PRN PRN Reason: If no BM Enoxaparin Sodium (Lovenox) 40 mg SC BID [facility] Last Admin: 10/14/19 10:00 Dose: 40 mg Documented by: Ferrous Sulfate (Ferrous Sulfate) 325 mg PO BID@1200,1700 [facility] Last Admin: 10/13/19 18:25 Dose: Not Given Documented by: Hydrocortisone (Hytone) 1 applic TOPICAL TID PRN PRN; Protocol PRN Reason: Discomfort Lactated Ringer's () 1,000 mls @ 100 mls/hr IV .Q10H [facility] Last Infusion: 10/14/19 08:28 Dose: Infused Documented by: Naloxone HCl 4 mg/ Dextrose 504 mls @ 0 mls/hr IV .Q0M PRN; Protocol PRN Reason: Respiratory depression Ibuprofen (Motrin) 600 mg PO Q6H PRN PRN PRN Reason: Pain Score 1-3/10 Ketorolac Tromethamine (Toradol (Bkc)) 30 mg IV Q6H [facility] Stop: 10/15/19 08:01 Last Admin: 10/14/19 10:00 Dose: 30 mg Documented by: Methylergonovine Maleate (Methergine) 0.2 mg IM X1 PRN PRN Reason: Uterine Atony Last Admin: 10/13/19 09:36 Dose: 0.2 mg Documented by: Naloxone HCl (Narcan) 0.02 mg IV Q1M PRN PRN Reason: RR <10 and pt unresponsive Ondansetron HCl (Zofran) 4 mg IV Q4H PRN PRN PRN Reason: Nausea Oxycodone HCl (Oxyir) 5 - 10 mg PO Q4H PRN PRN PRN Reason: Pain Score 4-10/10 Last Admin: 10/14/19 08:27 Dose: 5 mg Documented by: Prochlorperazine Edisylate (Compazine Iv) 10 mg IV Q6H PRN PRN PRN Reason: NAUSEA Senna/Docusate Sodium (Senokot-S, [place]-Colace) 0 tablet PO DAILY PRN PRN Reason: Constipation Sertraline HCl (Zoloft) 25 mg PO DAILY [facility] Last Admin: 10/13/19 11:50 Dose: Not Given Documented by: Simethicone (Mylicon) 80 mg PO PCHS PRN PRN Reason: Indigestion/stomach pain Sodium Chloride () 5 - 15 ml IV UD PRN PRN Reason: SALINE FLUSH Last Admin: 10/14/19 10:03 Dose: 10 ml Documented by: Medical Necessity - Tobacco Use Smoking Status: Former smoker Assessment/Plan All Active Problems 31 weeks gestation of (Acute) Decreased movement (Acute) POD#1 Heme - CBC pending ID - AF, no signs infection - montiel removed & no issues control - considering nexplanon D/c home later today per patient request
[2019-10-14] MEDS: Senna/Docusate Sodium 1 Tablet PO (10:04)
[2019-10-14] MEDS: Sertraline 50 MG Tablet 25 MG PO (10:04)
[2019-10-14 10:28] LABS: Hemoglobin 8.4 g/dL (12.0-15.0); Mean Corp Hgb Conc 31.1 g/dL (32-36); Mean Corpuscular Volume 77.1 fL (81-99); Mean Platelet Vol. 11.5 fl (6.2-12.0); Platelet Count 128 K/mm3 (150-450); RBC Distribution Width CV 15.5 % (11.6-14.6); RBC Distribution Width SD 42.5 fl (35.1-43.9); White Blood Count 11.1 K/mm3 (4.4-11.0)
--- NOTE | 2019-10-14 11:04 | CASEMGMT ---
Pt scored a 6, indicating mild depression. Resources given. FRANKIE Schrader
--- NOTE | 2019-10-14 11:54 | CASEMGMT ---
Social Work Assessment Labor and Delivery Unit Date/Time of referral: 10/14/19, 8:07am Referred By: Dr. Marbella Tamez Date/Time of Intervention: 10/14/19, 10:30am Reason for Referral: history of depression and anxiety History obtained from: MOB Hazelroderick [place] and FOB Richie Felipene Household composition: MOB, FOB, MOB's two year old son, and now baby Clark. MOB and FOGilbert have been together for a little over a year. LUCIA is not father of CHRIS's first child, though identifies as step dad to him. Parent/guardian status: MOB is guardian of baby, MOB and FOGilbert will care for baby when home. MOB guardian of first child Medical History: Baby Clark born 10/13/19, 3.84 kg. Apgars 8 and 9 at 1 and 5 minutes. CHRIS has eczema, history of depression, anxiety, ADD, depression Educational Status: CHRIS graduated high school and had been taking classes at [employer]. LUCIA dropped out after 9th grade Financial Status: LUCIA was let go from his job, and has been attempting to secure work through a temp agency. He plans to follow up on Thursday. He has tried to apply for unemployment without success(which is due to current COVID-19 situation). 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 Infant supplies: They have everything they need including crib, car seat, diapers, clothes, formula. Childcare/Caregivers: CHRIS's mother and grandmother are additional caregivers for the children, the two year old is with his grandmother at present. Transportation: They have a car, CHRIS drives, LUCIA has his temps. Programs/Agencies involved: WIC, S, they have food stamps, they have gotten help from [facility] for rent. CHRIS has been trying to get into [employer] [facility]. SW made referral to [facility], MOB and FOB agreeable to this. Children's Services/Legal issues: MOB and FOB both deny any involvement with [facility] or legal issues. Behavioral Health Issues: Substance abuse history: Both MOB and FOB deny any substance abuse history, no tox screens completed on MOB or baby. Mental Health: MOB: MOB confirms history of anxiety, depression, depression, ADD. MOB was on Prozac, switched to Zoloft. She did not take Zoloft during , states plans to take if needed, states DIRECTOR [employer] CONTENT MARKETING prescribed but is lower dose than what she took before. MOB also states she has not been consistent in taking when on it. SW encouraged her to let her DIRECTOR OF CONTENT MARKETING know if she is struggling w/, and to take the medication consistently, if the dose is too low to let her DIRECTOR OF CONTENT MARKETING know. MOB confirms will do so. MOB not in counseling, has not been since the age of 17-18. MOB not interested in counseling at present, but did accept resources. FOB: FOGilbert states struggles with ADHD, has been trying to get back on meds but his new PCP will not prescribe. FOB also states struggles with anger and states he says things sometimes he does not mean. MOB and FOB both deny any safety concerns, has never hit anyone and never would, but he does want to have better control over his frustrations and what he says. SW encouraged him to get into counseling and into seeing a medical professional who can prescribe meds. SW gave the list of counseling agencies in the area, highlighted some that offer both counseling with the ability to prescribe meds. He plans to follow up. PHQ-9: SW completed w/MOB, she scored a 6. Resources given. Family/Social Stressors: Money is a stressor as FOB may or may not be working as of next week, and getting unemployment is proving difficult. Having a new baby they both identify as a stressor, as well as the current situation with the coronavirus. They state they are financial stable at the moment but that finances are always a concern. MOB states she had saved up some money they have been using since FOB lost job. Support Systems: MOB identifies her mother and grandmother as supportive. FOGilbert identifies his mother, stepfather, and siblings as supportive--though they are physically further away in [place]. Depression and Anxiety/Shaken Baby/Safe Sleeping: Information given and reviewed on all of these topics. [facility] Resources, mental health resources, parent group information, and [facility] information also given, [facility] referral made. Assessment: SW met w/MOB and FOB, both easily engaged and appropriate. Both forthcoming with their own mental health histories, and open to getting help(FOB) and getting back on medication when needed(MOB). Both identify stressors at present which seem appropriate to the current situation, both for them and for the outside world. [facility] referral made, FOB plans to get into counseling, MOB plans to get back on Zoloft if needed. Resources for mental health given. SW did not observe interaction w/baby as he was sleeping during visit, though both parents do seem accepting of new baby. Plan: No other services indicated at this time, baby home w/parents at discharge, [facility] referral made, FOB to follow up w/mental health resources, MOB to start taking Zoloft again as indicated and get into counseling if needed. FRANKIE Schrader
[2019-10-14 14:05] VITALS: BP 121/65; PULSE 96; RESP 16; TEMP 36.8; O2SAT 95
[2019-10-14 16:53] VITALS: BP 121/65; PULSE 96; RESP 16; TEMP 36.8; O2SAT 95
== END 2019-10-14 17:55 | disposition home or self-care (01) | DRG 540 ==
PROVIDERS: Admitting Provider Obstetrics & Gynecology; Family Provider Family Medicine; PCP Family Medicine; Referring Provider Obstetrics & Gynecology; Visit Provider Obstetrics & Gynecology
PROC: 10D00Z1 Extraction of Products of Conception, Low, Open Approach (ICD-10-PCS; CPT 59514; principal; 2019-10-13 07:15)
DX: O34.211 Maternal care for low transverse scar from previous cesarean delivery (principal); O32.0XX0 Maternal care for unstable lie, not applicable or unspecified; O69.2XX0 Labor and delivery complicated by other cord entanglement, with compression, not applicable or unspecified; O99.02 Anemia complicating childbirth; D64.9 Anemia, unspecified; O99.344 Other mental disorders complicating childbirth; F32.9 Major depressive disorder, single episode, unspecified; F41.9 Anxiety disorder, unspecified; Z3A.39 39 weeks gestation of pregnancy; Z37.0 Single live birth; Z87.891 Personal history of nicotine dependence
CPT/HCPCS: 59025; 59050; 85025; 85027; 86850; 86900; 86901; 99218; J7120; A4216; G0378; J2405

== ENCOUNTER → 2020-09-17 11:44 | Outpatient (CLI) | payer MEDICAID, SELFPAY ==
[2019-10-13 05:08] VITALS: BMI 43.4
[2020-09-17 13:18] LABS: Absolute Lymphocyte Count 1.06 X10^3/uL (0.83-4.51); Absolute Neutrophil Count 6.6 X10^3/uL (2.0-7.7); Basophil# 0.02 X10^3/uL; Basophil% 0.2 % (0-1); Eosinophil# 0.25 X10^3/uL; Eosinophils% 2.9 % (0-5); Hematocrit 37.5 % (37-47); Lymphocyte # 1.06 X10^3/ul (4.0); Lymphocyte % 12.4 % (19-41); Mean Corpuscular Volume 81.3 fL (81-99); Mean Platelet Vol. 11.4 fl (6.2-12.0); Monocyte# 0.53 X10^3/uL; Monocyte% 6.2 % (0-10); NRBC Flagged by Analyzer 0 % (0-5); Neutrophil # 6.64 X10^3/uL (2.7-7.7); Neutrophil % 77.8 % (47-70); Platelet Count 174 K/mm3 (150-450); RBC Distribution Width CV 13.5 % (11.6-14.6); RBC Distribution Width SD 39.6 fl (35.1-43.9); Red Blood Count 4.61 M/mm3 (4.2-5.4); White Blood Count 8.5 K/mm3 (4.4-11.0)
[2020-09-17 16:03] LABS: HIV - WCH Non-Reactive (Nonreactive); Hepatitis B Surface Antigen Non-Reactive (Nonreactive); Hepatitis C Antibody Non-Reactive (Nonreactive); Rubella IgG Reactive (Nonreactive); Syphilis Antibodies Non-reactive
[2020-09-20 03:07] LABS: Chlamydia By Nucleic Acid AMP Negative (Negative)
[2020-09-20 07:32] LABS: Gonococcus By Nucleic Acid AMP Negative (Negative)
[2020-09-20 14:00] LABS: HPV Reflexed? NOT INDICATED
[2020-09-24 12:07] LABS: AFP MoM Value 0.44 (.); AFP Value-EIA 11.8 ng/mL (.); Comment Report (.); DIA MoM Value 1.24 (.); DIA Value-EIA 146.82 pg/mL (.); DSR (By Age) 1116 (.); DSR (Second Trimester) 985 (.); Gestat. Age Based On As provided (.); Insulin Dep Diabetes No (.); Maternal Age At EDD 22.5 yr (.); hCG MoM 0.97 (.); hCG Value 22497 mIU/mL (.)
[2020-09-24 15:48] LABS: CF, Screen Comment: (.)
== END ==
PROVIDERS: PCP Family Medicine; Visit Provider Student in an Organized Health Care Education/Training Program
DX: Z34.82 Encounter for supervision of other normal pregnancy, second trimester (principal)
CPT/HCPCS: 36415; 81220; 82105; 82677; 84702; 85025; 86703; 86762; 86780; 86803; 87086; 87088; 87340; 87491; 87591; 88175; G0145

== ENCOUNTER → 2020-11-15 13:18 | Outpatient (CLI) | payer MEDICAID, SELFPAY ==
[2019-10-13 05:08] VITALS: BMI 43.4
[2020-11-15 15:44] LABS: Hematocrit 34.5 % (37-47); Hemoglobin 10.8 g/dL (12.0-15.0); Mean Corp Hgb Conc 31.3 g/dL (32-36); Mean Corpuscular Hgb 25.5 pg (27.0-32.0); Mean Corpuscular Volume 81.4 fL (81-99); Mean Platelet Vol. 11.6 fl (6.2-12.0); Platelet Count 171 K/mm3 (150-450); RBC Distribution Width CV 13.2 % (11.6-14.6); RBC Distribution Width SD 38.6 fl (35.1-43.9); Red Blood Count 4.24 M/mm3 (4.2-5.4); White Blood Count 11.1 K/mm3 (4.4-11.0)
[2020-11-15 15:46] LABS: Glucose Challenge Gest 1H 50g 125 mg/dL (70-140)
== END ==
PROVIDERS: PCP Family Medicine; Visit Provider Student in an Organized Health Care Education/Training Program
DX: Z34.82 Encounter for supervision of other normal pregnancy, second trimester (principal)
CPT/HCPCS: 36415; 82950; 85027

== ENCOUNTER 2020-12-05 17:09 | Emergency (ER) | payer MEDICAID, SELFPAY ==
[2019-10-13 05:08] VITALS: BMI 43.4
[2020-12-05 17:10] VITALS: BP 122/75; PULSE 119; RESP 16; TEMP 36.3; O2SAT 96; BMI 41.3
[2020-12-05 17:15] VITALS: O2SAT 96
--- NOTE | 2020-12-05 17:58 | RAD_ITS ---
"EXAM: XR CHEST, 1 VIEW : 1998 CLINICAL INDICATION: Cough -- Shield abdomen TECHNIQUE: Frontal view of the chest. This report was created using [employer] | [employer] report generation technology. COMPARISON: None. FINDINGS: LUNGS AND PLEURAL SPACES: Unremarkable. No consolidation or edema. No pneumothorax. No effusion. HEART: Unremarkable. Cardiac silhouette not enlarged. MEDIASTINUM: Central airways and mediastinal contour are unremarkable. BONES/JOINTS: Unremarkable. SOFT TISSUES: Unremarkable. RAD/Chest 1 View (Portable) IMPRESSION: No radiographic evidence of acute cardiopulmonary disease. at 1912 Reported and signed by: Flip Green MD Electronically Signed: Flip Green MD at 19:11 EDT Tel , Service support , "
--- NOTE | 2020-12-05 18:01 | EDS_ITS ---
HPI History of Present Illness Chief Complaint: Cold Sx Informant: patient Onset/Context/Timing Onset: Today Context: Gradual Onset Timing: Continuous Quality: Sharp, stabbing Location: Upper chest Relieved by: Cool air Narrative Narrative: Patient presents with shortness of breath that has been gradually getting worse throughout the day today. Patient states she is also had a cough for the last couple days. Patient states she did have a sore throat but this has resolved. Patient states she has sharp stabbing sensation over her upper chest. Patient states the cool air seem to help with it. Patient states she has some pain in her chest with coughing. Patient also admits to headache and nasal congestion. Patient denies any sputum production. Patient denies any fevers or chills. Patient denies any nausea or vomiting. PFSH PFSH Medical History (Updated 12/05/20 @ 20:[address] Octavio Jones DO) Anxiety Depression Home Medications PNV cmb#95-ferrous fumarate-FA 1 tab PO DAILY 10/13/19 [History Last Taken 10/11/19] acetaminophen 1,000 mg PO Q8H PRN PRN #60 tab 10/14/19 [Rx Last Taken Unknown] docusate sodium 100 mg PO BID PRN PRN #60 cap 10/14/19 [Rx Last Taken Unknown] ibuprofen 600 mg PO Q6H PRN PRN #40 tab 10/14/19 [Rx Last Taken Unknown] sertraline 25 mg PO DAILY tab 10/14/19 [Rx Last Taken Unknown] Allergy/AdvReac Type Severity Reaction Status Date / Time No Known Allergies Allergy Verified 10/13/19 05:12 Surgical History (Updated 12/05/20 @ 18:[address] Octavio Jones DO) History of section History of tonsillectomy Social History Smoking Status: Former smoker ROS ROS ED Constitutional Constitutional ED: Denies chills or fever(s) Eyes Eyes: Denies blurry vision or change in vision ENT ENT ED: Reports rhinorrhea and sore throat Cardiovascular Cardiovascular: Reports chest pain; Denies palpitations Respiratory/Chest Respiratory/Chest: Reports cough and dyspnea Gastrointestinal Gastrointestinal: Denies nausea or vomiting Genitourinary Genitourinary ED: Denies dysuria or hematuria Musculoskeletal Musculoskeletal: Denies back pain or neck pain Integumentary Denies abscess or rash Neurologic Neurologic: Reports headache(s); Denies weakness Allergic/Immunologic Allergic/Immunologic ED: Denies mouth swelling or urticaria EXAM Physical Exam Const Vital Signs: 12/05/20 17:10 12/05/20 17:15 12/05/20 18:06 Temperature 97.4 F L Temperature Source Temporal Pulse Rate 119 H 90 Respiratory Rate 16 18 Respiratory Effort Normal Non-Labored Respiratory Depth Normal Respiratory Pattern Tachypnea Normal Blood Pressure 122/75 H Blood Pressure Mean 90 Pulse Ox 96 Oxygen Delivery Method Room Air Room Air Room Air Positive well nourished, well developed and obese General Appearance ED: well developed Nutritional Appearance: obese HEENT Reports moist mucous membranes Neck supple and no JVD Resp normal respiratory effort Auscultation: diminished lung sounds diffuse Cardio regular rate and regular rhythm GI normal to inspection, nondistended, normoactive bowel sounds and non-tender Palpation: soft Neuro oriented x3, CN's II-XII intact bilaterally and no sensory deficits noted Sensorium / Orientation: alert Motor Exam: strength 5/5 throughout Psych mental status grossly normal MDM MDM MDM Narrative Medical decision making narrative: Patient was given a DuoNeb aerosol here. Patient was given IV fluids. CBC shows a slight leukocytosis of 14.6. There is also mild anemia with hemoglobin of 10.9 hematocrit 33.8. Comprehensive metabolic profile was obtained and was essentially within normal limits. Portable 1 view chest x-ray was obtained. On my interpretation, lung robledo are clear. There is normal cardiac silhouette. Bony thorax is normal. There is no acute process noted. Radiologist also interpreted the x-ray and agrees. COVID- 19 rapid antigen test was obtained and was negative. Patient is feeling better on reevaluation. Patient was instructed to follow-up with her primary care physician in 5 to 7 days. Patient understood and was agreeable with the plan. All questions were answered. Lab Data Attestation: I reviewed the patient's lab results. Labs: Laboratory Results - last 24 hr 12/05/20 12/05/20 18:15 18:15 WBC 14.6 H RBC 4.23 Hgb 10.9 L Hct 33.8 L MCV 79.9 L MCH 25.8 L MCHC 32.2 RDW Std Deviation 38.7 RDW Coeff of Florian 13.5 Plt Count 144 L MPV 10.4 Immature Gran % (Auto) 0.500 Neut % (Auto) 86.2 H Lymph % (Auto) 4.7 L Daggett % (Auto) 6.8 Eos % (Auto) 1.7 Baso % (Auto) 0.1 Absolute Neuts (auto) 12.6 H Absolute Lymphs (auto) 0.68 L Nucleated RBC % 0 Sodium 139 Potassium 3.6 Chloride 109 H Carbon Dioxide 23.0 Anion Gap 7 BUN 7 Creatinine 0.46 L Estim Creat Clear Calc 200.48 Est GFR (MDRD) Af Amer 216 Est GFR (MDRD) Non-Af 179 BUN/Creatinine Ratio 15.1 Glucose 70 L Calcium 8.5 Total Bilirubin 0.70 AST 10 L ALT 10 L Alkaline Phosphatase 69 Total Protein 6.8 Albumin 2.8 L Globulin 4.0 Albumin/Globulin Ratio 0.7 L Radiography Chest X-Ray - ED: 1 View, Read by ED Physician, Read by Radiologist and Normal Diagnostic Testing: Radiology Impression Chest X-Ray 12/05/20 17:58 IMPRESSION: No radiographic evidence of acute cardiopulmonary disease. at 1912 Reported and signed by: Flip Green MD Electronically Signed: Flip Green MD at 19:11 EDT Tel , Service support , Discharge Plan Triage Chief Complaint: Cold Sx ED Provider: Octavio Jones Dx/Rx/DC Orders Clinical Impression: Viral upper respiratory tract infection Instructions: ED URI, Viral, No Abx (Adult) Prescriptions: No Action PNV cmb#95-ferrous fumarate-FA 1 EACH tablet 1 tab PO DAILY RF: 0 acetaminophen 500 MG tablet 1,000 mg PO Q8H PRN PRN (Reason: Pain Score 1-3/10;Temp>99.6F) Qty: 60 RF: 0 ibuprofen 600 MG tablet 600 mg PO Q6H PRN PRN (Reason: Pain Score 1-3/10) Qty: 40 RF: 0 sertraline 50 MG tablet 25 mg PO DAILY RF: 0 docusate sodium 100 MG capsule 100 mg PO BID PRN PRN (Reason: constipation) Qty: 60 RF: 0 Primary Care Provider: Jeanne Young Referrals: Jeanne Young DO [Primary Care Provider] - 5-7 Days Disposition Disposition: Home, self care Discharge Date/Time: 12/05/20 20:16
[2020-12-05 18:06] VITALS: PULSE 90; RESP 18
[2020-12-05] MEDS: Ipratropium/Albuterol Sulfate 3 ML AMPUL.NEB INHALATION (18:06)
[2020-12-05] MEDS: 0.9% Normal Saline 1,000 ML 1000 ML IV (18:14)
[2020-12-05 18:22] LABS: Absolute Lymphocyte Count 0.68 X10^3/uL (0.83-4.51); Absolute Neutrophil Count 12.6 X10^3/uL (2.0-7.7); Basophil# 0.02 X10^3/uL; Basophil% 0.1 % (0-1); Eosinophil# 0.25 X10^3/uL; Eosinophils% 1.7 % (0-5); Hematocrit 33.8 % (37-47); Hemoglobin 10.9 g/dL (12.0-15.0); Lymphocyte # 0.68 X10^3/ul (0.83-4.51); Lymphocyte % 4.7 % (19-41); Mean Corp Hgb Conc 32.2 g/dL (32-36); Mean Corpuscular Hgb 25.8 pg (27.0-32.0); Mean Corpuscular Volume 79.9 fL (81-99); Mean Platelet Vol. 10.4 fl (6.2-12.0); Monocyte% 6.8 % (0-10); NRBC Flagged by Analyzer 0 % (0-5); Neutrophil # 12.58 X10^3/uL (2.7-7.7); Neutrophil % 86.2 % (47-70); Platelet Count 144 K/mm3 (150-450); RBC Distribution Width CV 13.5 % (11.6-14.6); RBC Distribution Width SD 38.7 fl (35.1-43.9); Red Blood Count 4.23 M/mm3 (4.2-5.4); White Blood Count 14.6 K/mm3 (4.4-11.0)
[2020-12-05 18:50] LABS: ALB/GLOB Ratio 0.7 RATIO (0.9-2.4); AST(SGOT) 10 U/L (15-37); Alanine Aminotransfer ALT/SGPT 10 U/L (13-56); Albumin, Serum 2.8 g/dL (3.2-5.0); Alkaline Phosphatase 69 U/L (45-117); Anion Gap 7 (5-15); BUN 7 mg/dL (7-18); BUN/Creat Ratio 15.1 RATIO (10-20); Calcium,Total 8.5 mg/dL (8.5-10.1); Chloride 109 mmol/L (98-107); Creatinine, Serum 0.46 mg/dL (0.55-1.02); EST Glomerular Filtration Rate 179 mL/min (>60); Est Glom Filt Rate - Afr Amer 216 mL/min (>60); Estimated Creatinine Clearance 200.48 ml/min; Glucose 70 mg/dL (74-106); Potassium 3.6 mmol/L (3.5-5.1); Protein, Total 6.8 g/dL (6.4-8.2); Sodium Level 139 mmol/L (136-145)
== END 2020-12-05 20:16 | disposition home or self-care (01) ==
PROVIDERS: Emergency Provider Emergency Medicine; PCP Family Medicine
DX: J06.9 Acute upper respiratory infection, unspecified (principal); E66.9 Obesity, unspecified; Z68.41 Body mass index [BMI] 40.0-44.9, adult; Z87.891 Personal history of nicotine dependence
CPT/HCPCS: 71045; 80053; 85025; 87426; 94640; 96360; 99251; 99283; J7030; A4216; G0463

== ENCOUNTER 2020-12-21 21:25 | Outpatient (CLI) | payer MEDICAID, SELFPAY ==
[2020-12-21 21:30] VITALS: BMI 43.2
[2020-12-21 21:45] VITALS: TEMP 36.6; O2SAT 99
[2020-12-21 21:46] VITALS: BP 129/59; PULSE 112
--- NOTE | 2020-12-21 23:59 | OB.TRI.HP_ITS ---
HPI - General HPI Narrative MADONNA HOWELL, is a 20 F who presents at 30 3/7 wga with c/o right lower abdominal and hip pain. She has had discomfort for 2 weeks time. Today while getting up from the floor she felt a pop - like an explosion went off and the pain worsened. She denies weakness, falls, contractions, leaking of fluid, v aginal bleeding. She has good movement. PFSH PFSH Medical History Anxiety Depression Home Medications PNV cmb#95-ferrous fumarate-FA 1 tab PO DAILY 10/13/19 [History Last Taken 10/11/19] Allergy/AdvReac Type Severity Reaction Status Date / Time No Known Allergies Allergy Verified 12/21/20 22:23 Surgical History (Updated 12/05/20 @ 18:[address] Octavio Jones DO) History of section History of tonsillectomy Social History Smoking Status: Former smoker History 3 Elective abortions Hx Para 2 Spontaneous abortions Hx # Term Pregnancies Ectopic pregnancies Hx # Pregnancies Multiple births # of living children Past Pregnancies Del. Date Name GA/Weeks Outcome Route Bth Weight Infant Gen Labor Lgth Anesthesia Del Locatn Provider FOB 12/23/17 Gabriel 39 live - full term 11lb 1oz Female [address] [facility] Benekos 10/24/19 Rodas 39 live - full term 8lb 7oz Male 0 spinal angelia Richie Rosalia Physical Exam Const alert, oriented x3 and no apparent distress HEENT normocephalic Resp normal respiratory effort and normal air movement GI normal to inspection, nondistended, normoactive bowel sounds, soft to palpation, non-tender and non-distended GI Narrative: Prior scar nontender Inspection: gravid Narrative: Fundus soft nontender Extremity Extremity Narrative: No tenderness to palpation over the hips NST FHR Rate Baby A Baseline: 130 Variability:: Moderate Accelerations:: 10 x 10 Decelerations:: None NST Reactive:: Yes FHR Category:: Category I Uterine Activity:: 0/10 Assessment & Plan (1) 30 weeks gestation of : PLAN: No labor NST AGA and reactive Pain not reproducible on exam, musculoskeletal Supportive therapy DC home Charges/Coding Visit Charges Office Visits / Consults: 55267 OV L2 Est
== END 2020-12-21 22:30 | disposition home or self-care (01) ==
LOC: WPOUT 21:32 → WP 21:32
PROVIDERS: PCP Family Medicine; Visit Provider Obstetrics & Gynecology
DX: O26.893 Other specified pregnancy related conditions, third trimester (principal); Z3A.30 30 weeks gestation of pregnancy; R10.31 Right lower quadrant pain; M25.551 Pain in right hip
CPT/HCPCS: 59025; 59050; 99218; G0378

== ENCOUNTER → 2021-02-19 14:03 | Outpatient (CLI) | payer MEDICAID, SELFPAY ==
[2021-02-19] MEDS: 0.9% NaCl Peripheral Flush Adult/Peds IV (14:15)
[2021-02-19] MEDS: 0.9% NaCl IVPB Med Flush (250 mL) 15 ML IV (14:15)
[2021-02-19 14:19] VITALS: BP 128/68; PULSE 118; RESP 16; TEMP 35.6; O2SAT 97
[2021-02-19 15:39] VITALS: BP 131/59; PULSE 109; RESP 18; TEMP 36.7
== END ==
PROVIDERS: PCP Family Medicine; Referring Provider Obstetrics & Gynecology; Visit Provider Obstetrics & Gynecology
DX: O99.013 Anemia complicating pregnancy, third trimester (principal); D64.9 Anemia, unspecified; O34.211 Maternal care for low transverse scar from previous cesarean delivery; Z3A.38 38 weeks gestation of pregnancy
CPT/HCPCS: 96365; J1756; J7050; A4216

== ENCOUNTER 2021-02-20 09:45 | Inpatient (IN) | payer MEDICAID, SELFPAY ==
--- NOTE | 2021-02-18 08:43 | PCM.HP.BLA ---
History and Physical Date of Admission: 02/20/21 Katie Taylor MD Physician Specialty: RESEARCH GROUP DIRECTOR H&P ? Signed Encounter Date: 02/13/2021 Expand AllCollapse All Expand All by Default Hide copied text Hover for details Pre-Op History and Physical ? HPI: The patient is a 20 year old female presenting for pre-operative visit. She is scheduled for , for repeat elective cs on 02/20/21. Procedure discussed along with risks, benefits and complications. Other alternatives discussed for management. Consent form signed? Yes. ? ? PAST MEDICAL HISTORY PAST MEDICAL HISTORY Diagnosis Date ? Anemia ? ? Depression ? ? Eczema ? ? fracture 2008 ? shoulder ? depression ? ? ? PAST SURGICAL HISTORY PAST SURGICAL HISTORY Procedure Laterality Date ? DELIVERY ONLY ? 10/13/2019 ? RC/S low transverse ? SECTION HX ? ? ? x2 ? TONSILLECTOMY HX ? CURRENT MEDICATIONS Current Outpatient Medications Medication Sig Dispense Refill ? ferrous sulfate 325 mg (65 mg iron) tablet Take 1 tablet by mouth twice daily. 60 tablet 5 ? PNV NO.95/FERROUS FUM/FOLIC AC ( ORAL) Take by mouth. ? ? ? No current facility-administered medications for this visit. ? ? ALLERGIES: Cats ? PERSONAL HISTORY: SOCIAL HISTORY Social History ? Tobacco Use ? Smoking status: Former Smoker ? ? Years: 8.00 ? ? Types: Cigarettes ? ? Quit date: 10/03/2018 ? ? Years since quittin.3 ? Smokeless tobacco: Never Used Vaping Use ? Vaping Use: Never used Substance Use Topics ? Alcohol use: Not Currently ? Drug use: Not Currently ? ? Types: Marijuana ? ? Comment: none since 2016 ? FAMILY HISTORY: FAMILY HISTORY FAMILY HISTORY Problem Relation Age of Onset ? Heart Mother ? ? heart murrur ? Blood Disease Father ? ? hemochromatosis ? other (sarcoidosis) Father ? ? Sarcoidosis Father ? ? No Known Problems Sister ? ? No Known Problems Sister ? ? Asthma Brother ? ? No Known Problems Brother ? ? No Known Problems Brother ? ? Hypertension Maternal Grandmother ? ? Heart Attack Maternal Grandfather ? ? Sarcoidosis Paternal Grandmother ? ? No Known Problems Son ? ? No Known Problems Son ? ? ? REVIEW OF SYMPTOMS: negative except as noted above PHYSICAL EXAMINATION: ? VITALS: Blood pressure 134/68, weight (!) 307 lb (139.3 kg), last menstrual period 05/22/2020, not currently . ? GENERAL: The patient is well nourished, well hydrated in no acute distress. , The patient is oriented to time, place, and person. NECK: full range of motion Abd: soft, gravid, non tender ? IMPRESSION: Previous cs x 2 ? ? PLAN: Repeat cs at 39.1 weeks EDC 02/26/21 ? Pt has been counseled on risks/benefits and alternatives of surgery including but not limited to anesthesia, bleeding, infection, injury to pelvic structures including bowel, bladder, ureters and vessels. Pt wishes to proceed with surgery at this time. COVID TESTING reviewed [facility] protocol- pre op instructions reviewed ? I have reviewed and updated past medical and surgical history, medications and allergies Katie Taylor MD Routine Office Visit on 02/13/2021 Routine Office Visit on 02/13/2021 Note viewed by patient
[2021-02-20] VITALS (16 sets, daily range): BP systolic 114–128; BP diastolic 58–76; PULSE 74–107; RESP 15–18; TEMP 36–36.9; O2SAT 97–99; BMI 45.2
[2021-02-20] MEDS: Lactated Ringers 1,000 ML 999 ML IV (10:30)
[2021-02-20] MEDS: Acetaminophen 500 MG Tablet 1000 MG PO ×3 (10:35→23:58)
[2021-02-20 10:54] LABS: Absolute Lymphocyte Count 0.91 X10^3/uL (0.83-4.51); Absolute Neutrophil Count 9.2 X10^3/uL (2.0-7.7); Basophil# 0.01 X10^3/uL; Basophil% 0.1 % (0-1); Eosinophil# 0.14 X10^3/uL; Eosinophils% 1.3 % (0-5); Hematocrit 29.8 % (37-47); Hemoglobin 9.2 g/dL (12.0-15.0); Lymphocyte # 0.91 X10^3/ul (0.83-4.51); Lymphocyte % 8.3 % (19-41); Mean Corp Hgb Conc 30.9 g/dL (32-36); Mean Corpuscular Hgb 24.7 pg (27.0-32.0); Mean Corpuscular Volume 80.1 fL (81-99); Mean Platelet Vol. 11.6 fl (6.2-12.0); Monocyte% 4.5 % (0-10); NRBC Flagged by Analyzer 0 % (0-5); Neutrophil # 9.19 X10^3/uL (2.7-7.7); Neutrophil % 83.3 % (47-70); Platelet Count 132 K/mm3 (150-450); RBC Distribution Width CV 16.3 % (11.6-14.6); RBC Distribution Width SD 43.6 fl (35.1-43.9); Red Blood Count 3.72 M/mm3 (4.2-5.4)
[2021-02-20] MEDS: Lactated Ringers 1,000 ML 150 ML IV (11:31)
[2021-02-20] MEDS: Sodium Citrate/Citric Acid 30 ML UDC PO (11:40)
--- NOTE | 2021-02-20 12:59 | OP.PCM_ITS ---
Maternal Data Information Final GILMER: 02/26/21 Final GILMER Source: US <20 weeks Details Operative Information Date of Procedure: 02/20/21 Pre-Operative Diagnosis: term gestation at 39.1 weeks, previous caesarean section Post-Operative Diagnosis: same, live female Indications for : Repeat Elective Classification: Scheduled Procedure Type: low transverse supervisor cell room #1: Francois Walton Type of Anesthesia: Spinal Antibiotic Given: Ancef 3 grams IV x1 Drain: Parker to straight drain Estimated Blood Loss: 600 Fluids Replaced: 1000 Procedure Start Time: 12:25 Procedure Stop Time: 13:03 Time of Delivery: 12:30 Findings Description of Procedure: After informed consent was obtained the patient was taken the operating room she was given spinal anesthesia. She was then placed in the supine position. She was prepped and draped in the normal sterile fashion. Anesthesia was found to be adequate. At this time a Pfannenstiel skin incision was made with a knife was carried down to the underlying layer of the fascia. The fascial incision was then extended laterally using curved Briggs scissor. Attention was then turned to the superior aspect of the fascial edge was grasped with 2 straight Colt clamps tented up and the rectus muscle dissected off sharply using curved Briggs scissor. Attention was then turned to the inferior aspect where again Roseboom clamps were placed in the rectus muscles were tented up and the fascia was dissected off sharply using the curved Briggs scissor. Rectus muscles were then in the midline bluntly and peritoneum was entered bluntly. mininmal adhesions noted. Gentle opposing traction was placed. At this time the vesicouterine peritoneum was identified. Scalpel was used to make a uterine incision in a low transverse fashion. The uterus was then entered bluntly gentle opposing traction was placed to extend this incision. Membranes were ruptured clear. Infant's head was brought to the uterine incision was delivered atraumatically. Nuchal x 1 loose noted. Delayed cord clamping. Cord was clamped and cut infant was handed to the waiting nursery team. The Placenta was removed from the uterus. The uterus was then removed from the abdominal cavity. The uterus was cleared of all clots and debris using a lap. At this time the uterine incision was reapproximated using #1 Vicryl in a running locked fashion follwed by a second imbricating layer with 1-0 vicryl . Hemostasis was appreciated. Posterior cul-de-sac was then cleared of all clots and debris. Uterus was placed back in the abdominal cavity. Gutters were cleared of all clots and debris. Uterine incision was reevaluated and noted to be of excellent hemostasis. At this time the peritoneum was grasped with Kellys reapproximated using #2 Vicryl suture in a running fashion. Noel placed over rectus muscle. good hemostasis noted. Fascia was then reapproximated using #1 PDS in a running fashion. Bovie used for any oozing in subcu layer. Subcu layer was reapproximated with #2 0 plain gut suture in an interrupted fashion. Noel placed in subcu layer. skin layer was closed using 4-0 Monocryl subcu fashion. Dry sterile dressing was applied. Instrument lap needle count correct ?2. Anticipated normal postoperative course. Presentation: Positive for Vertex Amniotic Membrane Rupture Type: Artificial Amniotic Fluid Description: Clear Placental Delivery Description: Manual Removal Placenta Disposition: [facility] Cord Vessel Description: 3 Vessels Cord Entanglement: Around neck x 1, loose Nuchal Cord Compression: Without compression A Gender: Female (1 minute): 8 (5 minute): 9 Delayed Cord Clamping: Yes Complications Risks of Surgery Discussed w/Patient: Bleeding, Anesthesia Risks, Infection, Need for Future C-Sections and Injury to surrounding structure(s) including bowel and bladder Complications: none
[2021-02-20] MEDS: Oxytocin 30 units/NS 500 ml 30 UNITS/500 ML IV.SOLN 167 UNITS IV (13:55)
[2021-02-20] MEDS: Ketorolac 30 MG/ML Syringe IV ×2 (14:01→19:27)
[2021-02-20] MEDS: HYDROmorphone 1 MG/ML Syringe IV (16:45)
[2021-02-20] MEDS: Lactated Ringers 1,000 ML 100 ML IV (16:46)
[2021-02-20] MEDS: Enoxaparin 40 MG/0.4 ML Syringe SC (23:58)
--- NOTE | 2021-02-21 01:44 | NURSING ---
Pt IV infiltrated, pt given option to start another IV or be given oral meds, pt opted for oral medications as she did not want to be poked again
[2021-02-21] MEDS: Ibuprofen 600 MG Tablet PO ×3 (01:49→14:10)
[2021-02-21 04:00] VITALS: BP 118/61; PULSE 78; RESP 16; TEMP 37
[2021-02-21] MEDS: Acetaminophen 500 MG Tablet 1000 MG PO ×2 (06:18→12:30)
[2021-02-21 07:07] LABS: Hematocrit 30.4 % (37-47); Hemoglobin 9.3 g/dL (12.0-15.0); Mean Corp Hgb Conc 30.6 g/dL (32-36); Mean Corpuscular Hgb 24.3 pg (27.0-32.0); Mean Corpuscular Volume 79.6 fL (81-99); Mean Platelet Vol. 11.9 fl (6.2-12.0); Platelet Count 140 K/mm3 (150-450); RBC Distribution Width CV 16.3 % (11.6-14.6); RBC Distribution Width SD 43.8 fl (35.1-43.9); Red Blood Count 3.82 M/mm3 (4.2-5.4)
[2021-02-21 07:54] VITALS: BP 123/75; PULSE 89; RESP 16; TEMP 36.1
--- NOTE | 2021-02-21 08:29 | PN.OBGYN_ITS ---
Subjective Subjective Pain controlled. Desires discharge later today. Objective Data Objective Data Vital Signs: Vital Signs Temp Pulse Resp BP Pulse Ox 97.0 F L 89 16 123/75 H 98 02/21/21 07:54 02/21/21 07:54 02/21/21 07:54 02/21/21 07:54 02/20/21 19:31 Oxygen Delivery Method Room Air Weight: 306 lb 7.08 oz Body Mass Index (BMI) 45.2 Intake & Output: Intake and Output for Last 24 Hours 02/19/21 02/20/21 02/21/21 23:59 23:59 23:59 Intake Total 2451.67 / 2451.67 Output Total 300 / 300 200 / 200 Balance 2151.67 / 2151.67 -200 / -200 Lab / Micro Data Result Diagrams: 02/21/21 07:00 Labs: Laboratory Results - last 24 hr 02/20/21 10:30: WBC 11.0, RBC 3.72 L, Hgb 9.2 L, Hct 29.8 L, MCV 80.1 L, MCH 24.7 L, MCHC 30.9 L, RDW Std Deviation 43.6, RDW Coeff of Florian 16.3 H, Plt Count 132 L, MPV 11.6, Immature Gran % (Auto) 2.500 H, Neut % (Auto) 83.3 H, Lymph % (Auto) 8.3 L, Haakon % (Auto) 4.5, Eos % (Auto) 1.3, Baso % (Auto) 0.1, Absolute Neuts (auto) 9.2 H, Absolute Lymphs (auto) 0.91, Nucleated RBC % 0 02/20/21 10:30: Blood Type A POSITIVE, Antibody Screen NEGATIVE 02/21/21 07:00: WBC 13.0 H, RBC 3.82 L, Hgb 9.3 L, Hct 30.4 L, MCV 79.6 L, MCH 24.3 L, MCHC 30.6 L, RDW Std Deviation 43.8, RDW Coeff of Florian 16.3 H, Plt Count 140 L, MPV 11.9 Micro: Microbiology 02/20/21 10:55 Mucosa - Nose SARS-CoV-2 Antigen (Rapid) - Final Physical Exam Const alert, oriented x3 and no apparent distress HEENT normocephalic GI soft to palpation, non-tender and non-distended GI Narrative: fundus firm, mid & below umbilicus Incision - bandage c/d/i Extremity normal to inspection and no calf tenderness Assessment & Plan (1) Delivery by section: COMMENT: POD#1 PLAN: Heme - HDS, stable chronic iron deficiency anemia ID - AF, no signs infection GI - ADAT - no issues D/c home later today per patient request
--- NOTE | 2021-02-21 08:35 | PCM.DC ---
Discharge Instructions Diet Discharge Diet: No restrictions Activity Discharge Activity: May Shower May resume sexual activity in: 6 weeks Weight Bearing Status: Weight bearing as tolerated Dressing / Incision Call your doctor if your incision/area has: Continuous Slow Oozing, Sudden Increased Bleeding, Increased Pain/ Swelling, Increased Redness, Foul Smelling Discharge and Swelling at the incision site Call your doctor if you observe: Fever of 101 or Higher, Coldness, Increased Pain, Change in Color, Inability to urinate, Inability to have a bowel movement, Using more than 1 pad per hour, Shortness of breath, Dizziness, Fainting spells, Chest pain, Increased palpitations (irregular heartbeat), Calf discomfort and Uncontrolled pain Suture Line Care: Avoid Pulling/Pushing and Avoid Pinching/Bending Remove Dressing in: 1 week Cleanse incision/area with: Soap & Water Follow Up Care Please Follow Up With: Katie Khalil MD When: Follow up in 2 and 6 weeks for visits. Test Results: Test results from this visit will be discussed in further detail at your follow-up appointment, if applicable. Discharge Plan Admission Admit Date/Time: 02/20/21 09:45 Primary Reason for Your Visit: section Attending Provider: Katie Khalil Primary Care Provider: Jeanne Young Discharge Orders/Prescriptions Prescriptions: New acetaminophen 500 mg Tablet 1,000 mg PO Q6H Qty: 0 RF: 0 ibuprofen 600 mg Tablet 600 mg PO Q6H Qty: 0 RF: 0 Slow Fe 142 mg (45 mg iron) tablet extended release 142 mg PO DAILY Qty: 30 RF: 1 Continued PNV cmb#95-ferrous fumarate-FA 1 EACH tablet 1 tab PO DAILY RF: 0 Referrals / Follow Up: Jeanne Young DO [Primary Care Provider] - Disposition Disposition (needs filled in before D/C Order can be placed): Home, Self Care
[2021-02-21 12:25] VITALS: BP 125/75; RESP 16; TEMP 36.5; O2SAT 96
[2021-02-21] MEDS: Enoxaparin 40 MG/0.4 ML Syringe SC (12:36)
[2021-02-21] MEDS: Senna/Docusate Sodium 1 Tablet PO (12:36)
--- NOTE | 2021-02-21 14:34 | NURSING ---
Pt c/o LOUISE. BP 121/77. Motrin given as scheduled
--- NOTE | 2021-02-21 16:00 | CASEMGMT ---
Social Work Assessment Labor and Delivery Unit Patient Address: [facility] [address] [address], [place] [address] Phone number: [phone] Date of Referral: 02/20/2021; 02/21/2021 Time of Referral: 1624; 0805 Referred By: Dr. Juju Taylor Date of Intervention: 02/21/2021 Time of Intervention: 1600 Reason for Referral: Maternal mental health; PHQ-9 score of 14 History obtained from: Medical records including prior social work assessments in 2018 in 2019, and mother of baby (MOB) Sudhakar Vale; father of baby (FOB) Richie Lindsey present for part of conversation. Household composition: MOB and FOB live together along with 2 older children. Home situation is reported as safe and adequate. Patient's parent/guardian status: MOB is a 20-year-old single female, involved with the FOB for the last 2 years. During private conversation with the MOB, MOB denies any history of domestic violence, control, or intimidation in this relationship. The FOB is the father to the MOB 2 youngest children. Minor children include: Gabriel Westfall, born 12/23/2017, father is Jeyson Westfall. No regular visitation but that should pay child support. Clark Lindsey, born 10/13/2019, current FOB is the father. baby girl, Chanel Lindsey, born 02/20/2021. Medical History: MOB is 3, para 2 now 3 after delivering Chanel. No reported issues with care. Delivery via repeat . Delays weight was 9 pounds 9 ounces. Apgars 8 and 9 at 1 and 5 minutes of life. Educational Status: MOB with a high school education and trade school through the [facility] [employer]. No reported issues with reading or writing. Financial Status: MOB not currently working outside of the home. The FOB reportedly just moved to self-employment, owning a power [employer] and [employer] business. MOB reports the FOB saved up some money prior to making this move. Additional income in the home is from child support and also some food assistance. Infant Supplies: MOB and FOB reported to have all needed baby supplies including car seat, safe sleep spaces, clothing, diapers, wipes. MOB plans to do a combination of breast-feeding and formula feeding. Reports ability to purchase formula if needed. Childcare/Caregiver(s): MOB and FOB will be the primary caregivers of children. Transportation: MOB reports have adequate transportation. Programs/Agencies Involved: Job and family services for food and medical. Reports plan to apply for WIC. Will use [facility] for follow-up. Children Services/Legal Issues: MOB denies any legal history or children services involvement. Behavioral Health Issues: Mental Health History: MOB with a history of depression, anxiety, and ADD. MOB reports believe that she has had mood and anxiety issues, which have not resolved these closely spaced pregnancies. PHQ-9 is a score of 14 time, which falls into the high end of moderate depression. MOB denies any thoughts, plans, intent for suicide during this or during/after the other pregnancies. Reports never got that bad. Prior social work assessment indicates a history of suicidal ideation in the past but prior to having children. MOB has a history of treatment with Zoloft and Prozac. Reports to currently have a prescription for Lexapro but did not take that during the due to concerns about possible potential side effects. Reports would be more open to taking the medication at this time. Substance Use History: MOB has a history of marijuana use but no reported use since 2017. Prior social work assessment indicates the MOB experienced paranoia and numbness when using marijuana. MOB denies any history of any other illicit drug use. No reported use of alcohol during . Family History: Prior social work assessment indicates the MOB father has a history of bipolar disorder and alcohol use disorder with a history of suicide attempt. MOB reports that her mother has a history of attending the [facility] behavioral health program, as well as a history of treatment with Lexapro. Drug Screens: No drug screens noted care record or at time of delivery. Family/Social Stressors: was unplanned though accepted. MOB with mood and anxiety issues, with current depression in the moderate range, and currently untreated. FOB just switched to self-employment, which is at times stressful for FOB until there is enough income coming in to hire more help. Support Systems: MOB'S primary support system is the FOB and the MOB's mom. MOB mom took some time off of work to help the family the transition home with the baby. Depression/Shaken Baby/Safe Sleeping: Reviewed safe sleeping and shaken baby prevention. Reviewed mood and anxiety disorders, risk factors, and that both mothers and fathers can experience this. ASSESSMENT: Met with the MOB unfound, and then later joined by the FOB. Prior to the FOB arriving, the MOB indicated all topics are safe to speak about in front of the FOB. MOB denied privately any history of domestic violence issues with this FOB. Addressed the PHQ-9 depression scale, and the MOB endorses feeling depression. Reports believe this depression really has not resolved between the closely spaced pregnancies. Endorses feeling low and depressed, and also more irritability. MOB indicates that she is tired of feeling this way, and open to seeking out some additional support. Educated to the availability of individual counseling in the community, as well as the hospital's behavioral health program. MOB expressed interest in going to the hospital's behavioral health program, reporting its time to try something new. Offered MOB the option of calling and arranging her own appointment versus this signwriter assisting with securing follow-up. MOB reported she would prefer social work to help us, so that MOB is leaving with an appointment in place. This signwriter called the behavioral health department while still in the MOB room and secured in the intake assessment for 03/01/2021 at 1400. MOB voiced agreement with this time and date, and included the FOB in this discussion. FOB agreed this would be an okay time. FOB presented as supportive to the MOB seeking supportive care for her emotional health. MOB and FOB indicated to have all needed supplies for the baby, and the FOB is taking some time off of work. The MOB mother is also taking time off of work to help. MOB indicates to have a azul with the baby. MOB was calm and cooperative. Eye contact normal. Affect constricted. Mood depressed, though did smile intermittently and at appropriate times. And will be held baby for the entirety of social work visit, calm and handling the baby appropriately. No voiced concerns by nursing staff regarding parent/child interventions or bonding. Provided the MOB with a packet on mood and anxiety disorders, which includes resources. Provided a [facility] social service resource list as well. PLAN: MOB and infant will discharge home. Community resource information provided. Mental health follow-up set for 03/01/2021 at 1400. MOB has also been given a 24-hour crisis line if needed. No other services requested or indicated. -KIM Rascon MSW *Information documented in this assessment generated with [employer]*
[2021-02-21 16:29] VITALS: BP 130/69; PULSE 94; RESP 18; TEMP 36.2; O2SAT 96
== END 2021-02-21 16:40 | disposition home or self-care (01) | DRG 540 ==
PROVIDERS: Admitting Provider Obstetrics & Gynecology; PCP Family Medicine; Visit Provider Obstetrics & Gynecology
PROC: 10D00Z1 Extraction of Products of Conception, Low, Open Approach (ICD-10-PCS; CPT 59514; principal; 2021-02-20 11:45)
DX: O34.211 Maternal care for low transverse scar from previous cesarean delivery (principal); O69.81X0 Labor and delivery complicated by cord around neck, without compression, not applicable or unspecified; O99.02 Anemia complicating childbirth; D50.9 Iron deficiency anemia, unspecified; Z3A.39 39 weeks gestation of pregnancy; Z37.0 Single live birth; Z87.891 Personal history of nicotine dependence
CPT/HCPCS: 85025; 85027; 86850; 86900; 86901; 87426; 99218; J1756; J7050; J7120; A4216; G0378

== ENCOUNTER 2021-02-22 13:35 | Emergency (ER) | payer MEDICAID, SELFPAY ==
[2021-02-22 13:41] VITALS: BP 133/88; PULSE 103; RESP 18; TEMP 35.9; O2SAT 96; BMI 44.0
--- NOTE | 2021-02-22 14:18 | ED.VIS.GI ---
HPI HPI - GI History of Present Illness Chief Complaint: Abd Pain Detail of Chief Complaint: Pelvic pain post 2 days ago. Informant: patient Abdominal Pain/Flank Pain Onset: Yesterday Context: Gradual Onset Timing: Continuous Quality: Aching Current Severity: Mild Maximum Severity: Mild Nausea/Vomiting/Emesis GI Symptom: Negative for Nausea and Vomiting Diarrhea/Melena/Hematochezia GI Symptom: Negative for Diarrhea Associated Symptoms Associated Symptoms: Negative for Dysuria, Frequency and Hematuria Narrative Narrative: 18-year-old female who has had 2 prior C-sections and had her third 2 days ago. was done because of the prior she denies any complications of the . They did the at 39 weeks her and her new baby are both doing well. They did not receive any antibiotics during the . She has had no complications. But she is having discomfort in the suprapubic region. Denies fever or chills. No dysuria. Said she is not having any heavy vaginal bleeding or discharge. Prior similar symptoms: No Recent Illness/Hospitalization: Yes PFSH PFSH Medical History Anxiety Depression macrosomia Home Medications PNV cmb#95-ferrous fumarate-FA 1 tab PO DAILY 10/13/19 [History Last Taken 10/11/19] acetaminophen 1,000 mg PO Q6H #0 tab 02/21/21 [Rx Last Taken Unknown] ferrous sulfate [Slow Fe] 142 mg PO DAILY #30 tab 02/21/21 [Rx Last Taken Unknown] ibuprofen 600 mg PO Q6H #0 tab 02/21/21 [Rx Last Taken Unknown] Allergy/AdvReac Type Severity Reaction Status Date / Time No Known Allergies Allergy Verified 02/22/21 13:36 Surgical History History of section History of tonsillectomy Social History Smoking Status: Light Smoker (<10/day) ROS ROS ED ROS Narrative No recent illness. Review of Systems ROS Unobtainable: Denies due to encephalopathy Constitutional Constitutional ED: Denies chills or fever(s) ENT ENT ED: Denies ear pain or sore throat Cardiovascular Cardiovascular: Denies chest pain Respiratory/Chest Respiratory/Chest: Denies cough or dyspnea Gastrointestinal Gastrointestinal: Reports abdominal pain; Denies diarrhea, nausea or vomiting Genitourinary Genitourinary ED: Denies dysuria or hematuria Musculoskeletal Musculoskeletal: Denies myalgias Integumentary Denies rash Neurologic Neurologic: Denies headache(s) Psychiatric Psychiatric: Denies depression Endocrine Endocrinology: Denies polyuria Hematologic/Lymphatic Hematologic/Lymphatic: Denies easy bruising Allergic/Immunologic Allergic/Immunologic ED: Denies urticaria EXAM Physical Exam Narrative Exam Narrative: Well-appearing 18-year-old female. No acute distress. Initial blood pressure 133/88. Afebrile. HEENT exam unremarkable. Neck nontender. Lungs clear to auscultation bilaterally. Heart regular rate and rhythm no murmur. Abdomen soft. Normal bowel sounds no peritoneal signs. The only tenderness in her abdomen is at her horizontal incision. It is dry and clean. There is a dressing in place. There is no cellulitis or significant discharge. There is no significant bruising. Moving all 4 extremities. Nontender no edema. Neurologically she is awake alert with no focal motor deficits. Clinically the patient looks very well. Pelvic exam done with a female nurse present in room. External exam unremarkable. Speculum exam small amount of blood in the vaginal vault. No heavy bleeding. No clots. No discharge. Bimanual exam mild uterine tenderness. Not exquisite. No adnexal tenderness. Basically a normal exam 2 days post . Const Vital Signs: 02/22/21 13:41 Temperature 96.7 F L Temperature Source Temporal Pulse Rate 103 H Respiratory Rate 18 Blood Pressure 133/88 H Blood Pressure Mean 103 Pulse Ox 96 Oxygen Delivery Method Room Air Positive well nourished and well developed; Negative for cachectic or unkempt General Appearance ED: well developed and NAD; Negative for unkempt or cachectic Nutritional Appearance: Negative for cachectic HEENT Reports moist mucous membranes normocephalic and atraumatic; Negative for trauma or tenderness Eyes PERRL and EOMs intact bilaterally Neck no lymphadenopathy, supple and no JVD General: Negative for tenderness Resp normal respiratory effort and clear to auscultation bilaterally Auscultation: Negative for rales, rhonchi or wheezes GI non-distended and no masses; Negative for non-tender GI Narrative: Tender at the site only. The incision is dry and clean. Auscultation: normoactive bowel sounds Palpation: soft and tender Back/Spine no CVA tenderness Extremity full ROM General Extremety ED: Negative for edema or tenderness General Extremity: Negative for edema Neuro moves all extremities Sensorium / Orientation: alert, oriented to person, oriented to place and oriented to time; Negative for orientation impaired, confused, lethargic or stuporous Motor Exam: strength 5/5 throughout Psych mental status grossly normal Appearance: Negative for unkempt Skin Lesions: no lesions Rashes: no rashes MDM MDM MDM Narrative Medical decision making narrative: Well-appearing 18-year-old female status post complaining of discomfort at the site. She has no other symptoms. Exam is very benign with a very clean looking incision. Screening labs and urinalysis are being obtained. Pelvic exam pending. She wanted Tylenol for mild headache. Repeat exam patient is doing well at 4:25 PM. [place] comfortable letting her be discharged home. I will speak to her TELEGRAPHIC TYPEWRITER MECHANIC prior to discharge. Lab Data Attestation: I reviewed the patient's lab results. Lab results narrative: CBC shows a white count 12.1 which is actually coming down from her . Hemoglobin 10.0 which is actually coming up from her previous hemoglobins in the low nines. Electrolytes unremarkable gap 7. Normal creatinine. Glucose 76. UA shows 25-50 red cells 5-10 epithelial cells consistent with contaminant 0 bacteria and 0 nitrites and no UTI. Labs: Laboratory Results - last 24 hr 02/22/21 02/22/21 02/22/21 14:30 14:30 14:34 WBC 12.1 H RBC 4.06 L Hgb 10.0 L Hct 32.4 L MCV 79.8 L MCH 24.6 L MCHC 30.9 L RDW Std Deviation 45.0 H RDW Coeff of Florian 17.2 H Plt Count 160 MPV 11.2 Immature Gran % (Auto) 0.800 Neut % (Auto) 78.7 H Lymph % (Auto) 9.1 L Metcalfe % (Auto) 8.0 Eos % (Auto) 3.1 Baso % (Auto) 0.3 Absolute Neuts (auto) 9.5 H Absolute Lymphs (auto) 1.10 Nucleated RBC % 0 Sodium 142 Potassium 3.8 Chloride 111 H Carbon Dioxide 24.0 Anion Gap 7 BUN 7 Creatinine 0.48 L Estim Creat Clear Calc 178.78 Est GFR (MDRD) Af Amer 209 Est GFR (MDRD) Non-Af 173 BUN/Creatinine Ratio 14.7 Glucose 76 Calcium 8.8 Urine Color Yellow Urine Clarity Sl. Cloudy Urine pH 6.5 Ur Specific Kimball 1.010 Urine Protein 15 H Urine Glucose (UA) Normal Urine Ketones Negative Urine Occult Blood 250 H Urine Nitrite Negative Urine Bilirubin Negative Urine Urobilinogen Normal Ur Leukocyte Esterase 25 H Urine RBC 25-50 SEEN Urine WBC 0-5 SEEN Ur Squamous Epith Cells 5-10 SEEN Amorphous Sediment 1+ URATE Urine Bacteria 0 SEEN Urine Mucus 0 SEEN Discharge Plan Triage Chief Complaint: Abd Pain ED Provider: Francois Alcala Dx/Rx/DC Orders Clinical Impression: Postoperative abdominal pain Instructions: Managing Post-Op Pain at Home Prescriptions: No Action PNV cmb#95-ferrous fumarate-FA 1 EACH tablet 1 tab PO DAILY RF: 0 acetaminophen 500 mg Tablet 1,000 mg PO Q6H Qty: 0 RF: 0 ibuprofen 600 mg Tablet 600 mg PO Q6H Qty: 0 RF: 0 Slow Fe 142 mg (45 mg iron) tablet extended release 142 mg PO DAILY Qty: 30 RF: 1 Primary Care Provider: Jeanne Young Referrals: Jeanne Young DO [Primary Care Provider] - Chana Golden MD [STAFF PHYSICIAN] - 3-5 Days if not improving Activity Restrictions/Additional Instructions: Tylenol and/or Motrin for pain. Your labs and urine look good. This is normal postoperative pain after a . Currently there is no signs of infection. Ice and/or heating pad to the wound area. Follow-up with your next scheduled TELEGRAPHIC TYPEWRITER MECHANIC appointment or follow-up sooner next week if you are not improving. This should progressively get better. Expect to be sore for the next several days. Heavy bleeding, discharge or fever needs to be reevaluated. Disposition Disposition: Home, Self Care
[2021-02-22 14:39] LABS: Absolute Neutrophil Count 9.5 X10^3/uL (2.0-7.7); Basophil# 0.04 X10^3/uL; Basophil% 0.3 % (0-1); Eosinophil# 0.38 X10^3/uL; Eosinophils% 3.1 % (0-5); Hematocrit 32.4 % (37-47); Lymphocyte % 9.1 % (19-41); Mean Corp Hgb Conc 30.9 g/dL (32-36); Mean Corpuscular Hgb 24.6 pg (27.0-32.0); Mean Corpuscular Volume 79.8 fL (81-99); Mean Platelet Vol. 11.2 fl (6.2-12.0); Monocyte# 0.97 X10^3/uL; NRBC Flagged by Analyzer 0 % (0-5); Neutrophil # 9.48 X10^3/uL (2.7-7.7); Neutrophil % 78.7 % (47-70); Platelet Count 160 K/mm3 (150-450); RBC Distribution Width CV 17.2 % (11.6-14.6); Red Blood Count 4.06 M/mm3 (4.2-5.4); White Blood Count 12.1 K/mm3 (4.4-11.0)
[2021-02-22] MEDS: Acetaminophen 500 MG Tablet 1000 MG PO (14:40)
[2021-02-22 14:55] LABS: Bacteria 0 SEEN /hpf (None Seen); Mucous, Urine 0 SEEN /hpf (<or=2+)
[2021-02-22 15:02] LABS: Color, Urine Yellow (Yellow); Glucose, Dipstick Normal (Normal); Ketone-Dipstick Negative (Negative); Leukocyte Esterase-Dipstick 25 /ul (Negative); Nitrite-Dipstick Negative (Negative); Occult Blood-Urine 250 /ul (Negative); Protein-Dipstick 15 mg/dl (Negative); Urine Bilirubin Dipstick Negative (Negative); Urine Clarity Sl. Cloudy (Clear); Urine Urobilinogen Normal (Normal); Urine pH 6.5 (5.0 - 8.0)
[2021-02-22 15:07] LABS: Anion Gap 7 (5-15); BUN 7 mg/dL (7-18); BUN/Creat Ratio 14.7 RATIO (10-20); Calcium,Total 8.8 mg/dL (8.5-10.1); Chloride 111 mmol/L (98-107); Creatinine, Serum 0.48 mg/dL (0.55-1.02); EST Glomerular Filtration Rate 173 mL/min (>60); Est Glom Filt Rate - Afr Amer 209 mL/min (>60); Estimated Creatinine Clearance 178.78 ml/min; Glucose 76 mg/dL (74-106); Potassium 3.8 mmol/L (3.5-5.1); Sodium Level 142 mmol/L (136-145)
[2021-02-22 15:13] LABS: Red Blood Cells-Urine 25-50 SEEN /hpf (0-5); Squamous Epithelial Cells - UA 5-10 SEEN /hpf (5-10); White Blood Cells 0-5 SEEN /hpf (0-5)
[2021-02-22 15:14] LABS: Amorphous Sediment 1+ URATE
== END 2021-02-22 16:55 | disposition home or self-care (01) ==
PROVIDERS: Emergency Provider Emergency Medicine; PCP Family Medicine
DX: R10.2 Pelvic and perineal pain (principal); G89.18 Other acute postprocedural pain; F17.200 Nicotine dependence, unspecified, uncomplicated
CPT/HCPCS: 80048; 81001; 85025; 99282; A4216

== ENCOUNTER 2021-03-20 09:00 | Outpatient (RCR) | payer MEDICAID, SELFPAY ==
--- NOTE | 2021-03-20 09:05 | BH.SGPN.GN ---
Behaviors/Verbalizations/Mental Status: Eye contact is good. Motor activity is appropriate. Appearance is casual. Speech is appropriate. Mood is stressed. Affect is congruent. Thoughts are linear and logical. No evidence of psychosis. Reviewed daily check in sheet with no reports of suicidal ideations, plan, or intent. Client Response/Progress/Benefit: Client was engaged throughout the group session and reported her emotion of the day as ?flustered.? Client stated stressors include having 3 children under the age of 3, being frustrated with boyfriend ?I feel like I am a single mom in a relationship,? and feelings of not being where she ?should? be in life. Clinician and group discussed and normalized feelings of frustration with ?shoulds?, which client appeared to benefit from. Client also appeared to benefit from group discussion regarding breaking down goals into attainable steps. Client expressed that her mental health win was attending group session. Will continue IOP treatment to learn coping strategies and recognize strengths in order to reduce negative self-talk and unrealistic expectations. Narrative Note: []
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
[2021-03-20 10:27] VITALS: BP 127/84; PULSE 69
--- NOTE | 2021-03-20 11:18 | BH.SGPN.GN ---
Behaviors/Verbalizations/Mental Status: []Eye contact is good. Motor activity is appropriate. Appearance is casual. Speech is Appropriate. Mood is anxious. Affect is congruent. Thoughts are linear and logical. No evidence of psychosis. Client Response/Progress/Benefit: []Pt first day in IOP tx. She was an active participant, taking notes and providing input throughout group discussion and activity though remained mostly passive. Attentive during psychoeducation on cognitive distortions not discussed in previous group and several examples of distortions she struggles with. Pt indicated connecting with distortions of minimization, personalization, and overgeneralizing. Pt was a passive but attentive participant in Cognitive Distortions Jeopardy, providing some input and suggestions to small group. Utilized notes from psychoeducation on cognitive distortions to assist peers in correctly answering questions. Expressed benefitting from actively practicing reframing skills. Experiential activity was beneficial as it provided a way for patient to review notes and handouts during psychoeducation to answer questions for the game. Will continue in [facility] tx to further improve understanding of mental health symptoms and healthy coping skills for better management of symptoms, reduce irritability, and further improve ability to manage stressors impacting ability to function at baseline. Narrative Note: []
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
--- NOTE | 2021-03-20 13:18 | BH.DR.ITP ---
Initial Treatment Plan Patient Information Visit Information: ADMISSION DATE: EXPECTED LOS: 4-6 weeks Problems/Symptoms Problem #1:: Depression Symptom:: Hopelessness, worthlessness, apathy, lack of motivation, numbness, anhedonia, low energy, guilt Problem #2:: Anxiety Symptom:: Worry, rumination
--- NOTE | 2021-03-20 13:36 | BH.PSA ---
Suicide Assessment Treatment Plan Recommendations
--- NOTE | 2021-03-20 13:36 | BH.PSA_ITS ---
Suicide Assessment Treatment Plan Recommendations
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
--- NOTE | 2021-03-22 09:03 | BH.SGPN.GN ---
Behaviors/Verbalizations/Mental Status: []Eye contact is good. Motor activity is appropriate. Appearance is casual. Speech is Appropriate. Mood is depressed and agitated. Affect is congruent. Thoughts are linear and logical. No evidence of psychosis. Reviewed daily check in sheet and no reports of suicidal ideations or intent. Client Response/Progress/Benefit: []Pt receptive of session, participated during the group discussion, and willing to process with group. Emotion for today is reported as ?tired? to which she attributes difficulties in adjusting to now having three children under the age of three. Shared struggling to feel supported by her boyfriend and usually becomes very frustrated when he does not help around the house. Discussed, however, making strides to improve her emotion regulation and finds she has not been getting aggravated as easily lately. Identified this as a win and noted using thought challenging, taking breaks, and removing herself from the environment. Pt identified her house being messy as a major stressor right now and shared struggling with motivating herself as well. Expressed finding it hard to stay positive in these moments. Appeared to benefit from group normalizing difficulties with motivation and discussion on strategies for improving motivation. Noted connecting particularly with small daily goals. Recommended continued IOP tx to improve communication and boundary setting with her supports, promote mood stability and use of distress tolerance skills, as well as reduce depressive sx. Narrative Note: []
--- NOTE | 2021-03-22 10:10 | BH.SGPN.GN ---
Behaviors/Verbalizations/Mental Status: [] Eye contact is good. Motor activity is appropriate. Appearance is casual. Speech is Appropriate. Mood is depressed. Affect is flat. Thoughts are linear and logical. No evidence of psychosis Client Response/Progress/Benefit: [] Pt was an active participant in group discussion. Attentive during psychoeducation on Conflict Styles ( Avoidant, Competing, Accommodating, and Cooperative). Participated in interactive group discussion on why we tend to avoid conflict. Pt along with peers identified several reasons conflict is often avoided which included; don't want to deal with it, anxiety, it can be awkward, can cause more problems, don't want to get hurt, don't want to hurt others, and fear of rejection. Pt along with peers also identified the reasons why we need conflict which included; helps us set boundaries, advocacy, helps us express needs/emotions, and can improve relationships. Conflict style she most often uses is competing. Benefited from increased awareness on conflict styles. Will continue in IOP to maintain safety, increase healthy coping, and to prevent decompensation. Narrative Note: []
--- NOTE | 2021-03-22 11:10 | BH.SGPN.GN ---
Behaviors/Verbalizations/Mental Status: []Client alert and oriented, disheveled appearance. Eye contact good. Motor activity appropriate. Speech within normal limits. Affect congruent, mood dysthymic and stressed. Thoughts linear, logical, no signs of hallucinations or delusions. Client Response/Progress/Benefit: []Client engaged in session AEB contributing to discussion and engaging in activity. Client did well to review current conflict style and its impact on mental health. Acknowledged the impact being accommodating and competing has on client?s mental health. Attentive and taking notes during discussion on strategies for more effectively managing conflict in personal life. Client participated in activity and did well to listen to peer while providing own opinion. Client wants to work on not yelling and not using degrading language. Client reported she and her boyfriend often argue and client wants to get better at managing conflict ?so my children don?t learn that.? Appeared to benefit from gaining strategies to help client better manage conflict. Will continue IOP tx to increase emotional regulation skills, gain healthy support, and prevent decompensation. Narrative Note: []
--- NOTE | 2021-03-28 10:10 | BH.SGPN.GN ---
Behaviors/Verbalizations/Mental Status: [] Eye contact is good. Motor activity is appropriate. Appearance is casual. Speech is Appropriate. Mood is depressed. Affect is flat. Thoughts are linear and logical. No evidence of psychosis. Client Response/Progress/Benefit: [] Pt was an active participant in group discussion and activity. Attentive during psychoeducation on the stages of change. Pt participated in interactive discussion on emotions associated with change (happy, ecstatic, lonely, shocked, surprised, lonely, etc). Pt along with peers identified barriers that may prevent one from making change which included; stuck in routine, habits, fear, others, and responsibilities. Group able to identify the benefits to changes such as personal growth, feeling more positive, increased confidence, healthier environment, improved relationships, and obtaining goals. Benefited from increased awareness of emotions related to change, the change process, and benefits/barriers to change. Will continue in IOP to prevent decompensation, increase healthy coping, and improve functioning. Narrative Note: []
--- NOTE | 2021-03-28 11:13 | BH.SGPN.GN ---
Behaviors/Verbalizations/Mental Status: []Client alert and oriented, casually dressed and groomed. Eye contact good. Motor activity appropriate. Speech within normal limits. Affect congruent, mood agitated, depressed. Thoughts linear, logical, no signs of hallucinations or delusions. Client Response/Progress/Benefit: []Client was an active participant AEB contributing to discussion and taking notes throughout. Client participated during continued discussion and psychoeducation on the stages of change. Did well to process activity and work with group to relate the barriers and strategies used to overcome the barriers to managing change in own life. Receptive of psychoeducation on using a decisional balance sheet to address uncertainties associated with making changes. Client identified a change she is currently contemplating as ?going to therapy and getting help with my mental health?. Shared potential benefits of this change include: setting a healthy example for her kids, more engaged with her family, accomplish personal goals for herself, and find more enjoyment in life. Discussed some potential costs preventing her from making this change as: struggling to stay consistent, setting boundaries with toxic people, it is hard sometimes/there may be rough patches, and allowing herself to forgive past hurt. Client appeared to benefit from reflecting on the benefits of changing vs. costs of not changing, as well as barriers to change and resources for addressing those barriers. Pt recommended continued IOP tx to improve insight and knowledge of healthy skills for improving mood stability, improve healthy boundaries, and reduce negative self-talk. Narrative Note: []
--- NOTE | 2021-03-29 09:00 | BH.SGPN.GN ---
Behaviors/Verbalizations/Mental Status: []Pt eye contact good, casually dressed, motor activity appropriate, speech normal rate and tone, mood anxious, constricted affect, thoughts linear and intact, no evidence of delusions or hallucinations. Reviewed client?s symptom tracker, no signs of suicidal ideation, plan, or intent as of today. Client Response/Progress/Benefit: []Pt responded well to session AEB by listening to others and sharing thoughts and feelings. Pt reported feeling stressed because her boyfriend had emergency gall bladder surgery last week so he can't work right now. Pt stated she is worried about not being able to pay her bills. Pt reported a mental health positive as getting an interview for a evening job to pay the bills. Pt identified feeling nervous about having to leave her to go to work. Pt to continue IOP to increase healthy coping, challenge negative thoughts and prevent decompensation. Narrative Note: []
--- NOTE | 2021-03-29 10:13 | BH.SGPN.GN ---
Behaviors/Verbalizations/Mental Status: [] Client alert and oriented, casually dressed and groomed. Eye contact good. Motor activity appropriate. Speech within normal limits. Affect congruent, mood depressed. Thoughts linear, logical, no signs of hallucinations or delusions. Client Response/Progress/Benefit: [] Client active participant AEB providing contributions during group discussion, taking notes, and appeared to listen attentively to peers. Client connected with the topic of relationships. Helped group discuss the benefits of relationships as well as the potential factors maintaining unhealthy relationships. Client stated that ?Healthy relationships can help shape who we are for the positive, they can lead to growth by encouraging each other to challenge ourselves in positive ways?. Went on to note that unhealthy relationships can impact our view of self and result in feeling like we aren?t good enough. They can lead to repeating learned unhealthy behaviors. Noted that watching the unhealthy relationships of others has led to maintaining unhealthy relationships herself. Helped group identify the risk factors for unhealthy relationships which included: poor self-esteem, trauma, loneliness, learned behaviors, and not taking care of own mental health. Worked with group to develop a list of the consequences that unhealthy relationships have on mental health. Appeared to benefit from increasing awareness of the impact unhealthy relationships can have on mental health. Pt to continue IOP to improve depression and healthy coping, as well as continue to promote engagement with healthy supports and set boundaries in her current relationships. Narrative Note: []
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
--- NOTE | 2021-03-29 21:59 | BH.MDN ---
Multi-Disciplinary Note - Note 30-min Individual Time Started:: 09:35 Date: 03/29/21 Purpose of session/treatment goals addressed:: Purpose of session was to address goal 1 from MTP. Eye Contact:: Fair Motor Activity:: Appropriate Time Stopped:: 10:00
--- NOTE | 2021-04-04 09:00 | BH.SGPN.GN ---
Behaviors/Verbalizations/Mental Status: [] Eye contact is good. Motor activity is appropriate. Appearance is disheveled. Speech is Appropriate. Mood is irritable. Affect is congruent. Thoughts are linear and logical. No evidence of psychosis. Reviewed daily check in sheet and no reports of suicidal ideations or intent. Client Response/Progress/Benefit: [] Pt participated when prompted. Attentive. Emotion for today is hopeful. Shared that she recently started a job which has been stressful however helpful for finances. Shared the stressors related to work as well as at home. I'm trying to figure out my mental health to help me in the future. Reports feeling numb and struggles to identify any emotions aside from anger. Able to see progress since starting IOP. Progress noted. Benefited from group support and encouragement. Will continue in IOP to prevent decompensation, increase healthy coping skills, and stabilize mood. Narrative Note: []
--- NOTE | 2021-04-04 10:12 | BH.SGPN.GN ---
Behaviors/Verbalizations/Mental Status: []Eye contact is good. Motor activity is appropriate. Appearance is casual. Speech is Appropriate. Mood is anxious. Affect is constricted. Thoughts are linear and logical. No evidence of psychosis. Client Response/Progress/Benefit: []Pt was an engaged participant in group discussions. Attentive and provided insights during psychoeducation on benefits and disadvantages of anxiety and review of different types of Anxiety Disorders (Social Anxiety, GEORGE, OCD, PTSD, and Separation Anxiety). Completed worksheet on identifying own physical symptoms or signs of anxiety which pt reported numerous however identified most frequent as: restless, heart racing, feels like she is floating, and shaking. Benefited from increased awareness of physiological signs of anxiety as well as differences between 'normal' anxiety and anxiety disorder. Will continue in IOP to improve emotion regulation, improve daily functioning and prevent decompensation. Narrative Note: []
--- NOTE | 2021-04-04 14:48 | BH.MDN ---
Multi-Disciplinary Note - Note 45-min Individual Time Started:: 11:10 Date: 04/04/21 Purpose of session/treatment goals addressed:: Purpose of session was to address goal 1 from master treatment plan. Eye Contact:: Good Motor Activity:: Appropriate Appearance:: Casual Speech:: Appropriate Mood:: Irritable Affect:: Congruent Thoughts:: Linear, Logical, No evidence of hallucinations/delusions noted Staff Interventions:: thought challenging, CBT techniques, strengths perspective, goal setting, taught coping skills - belly breathing Client Response:: Pt reported she started work over the weekend which she stated is a difficult transition. Pt stated continued problems and issues with her boyfriend. Pt stated there are differences in their parenting style that is causing increased conflict within their relationship. Pt reported she is very motivated to make sure her children do not have the childhood she had and gets frustrated with her boyfriend when he gets easily irritable with the kids. Pt reported she was able to work on her goal from last week by spending quality time with her kids. Pt stated she noticed improved mood after taking time to build a fort with her kids. Pt stated biggest issue is feeling angry, easily irritable and frustrated. Pt responded well to education about diaphragmic breathing, counting to 10 and walking away. Discussed importance of being able to recognize signs that she is getting irritated so can use a skill prior to lashing out. Pt stated goal for the week is to recognize she is getting irritated and use a skill to stop self from lashing out at least once. Risks/Concerns:: denies suicidal/homicidal ideation, plan or intention to date. Progress Toward Goals/Plan:: Progress noted with pt following through with short-term goals and use of opposite action. Pt continues to report continued feelings of apathy, low motivation and irritability. Pt recognizes her relationship could be a barrier to her treatment progress. Pt to continue IOP to improve emotion regulation, increase healthy coping and prevent decompensation. Time Stopped:: 11:50
== END 2021-04-04 23:59 ==
LOC: BHIOP 09:00
PROVIDERS: PCP Family Medicine; Referring Provider Psychiatry & Neurology Psychiatry; Visit Provider Psychiatry & Neurology Psychiatry
DX: F33.2 Major depressive disorder, recurrent severe without psychotic features (principal); F41.1 Generalized anxiety disorder; Z79.899 Other long term (current) drug therapy; F17.210 Nicotine dependence, cigarettes, uncomplicated
CPT/HCPCS: 90792; H2012; H2020; S9480; T1002; 90832; 90834

== ENCOUNTER 2021-04-05 09:00 | Outpatient (RCR) | payer MEDICAID, SELFPAY ==
[2021-04-05 00:38] VITALS: BP 127/84; PULSE 69
--- NOTE | 2021-04-05 09:03 | BH.SGPN.GN ---
Behaviors/Verbalizations/Mental Status: []Client alert and oriented, casually dressed and groomed. Eye contact good. Motor activity appropriate. Speech within normal limits. Affect congruent, mood depressed, angry, overwhelmed. Thoughts linear, logical, no signs of hallucinations or delusions. Reviewed client?s symptom tracker, denies any suicidal ideation, plan, or intent as of 04/05/21. Future oriented Client Response/Progress/Benefit: []Client responded well to session, attentive, appearing to connect to fellow participants, and providing supportive feedback throughout. Client reports feeling blehh this morning and discussed she believes this is due to continued interpersonal stressors. Shared ongoing stressors of trying to balance household maintenance, caring for her children, and finances with little support. Shared that opposite action and beginning the IOP program has helped her to feel less alone and more capable of managing her daily stressors. Continues to struggle with poor boundaries, emotion regulation, and communication. Will continue IOP tx to prevent decompensation, improve ability to practice self-care, advocate for her own mental health needs, and continue to promote healthy communication skills. Narrative Note: []
--- NOTE | 2021-04-05 10:10 | BH.SGPN.GN ---
Behaviors/Verbalizations/Mental Status: []Client alert and oriented, casually dressed and groomed. Eye contact good. Motor activity appropriate. Speech within normal limits. Affect congruent, mood agitated. Thoughts linear, logical, no signs of hallucinations or delusions. Client Response/Progress/Benefit: []Pt was an active participant in group discussion. Attentive during psychoeducation on communication styles. Along with peers pt participated in providing insight into the benefits to effective communication on mental health which included; helps us get needs met, resolves problems, improves relationships, establishes expectations, decreases stress, and to express emotions. Pt along with peers able to identify ways that communication can be misinterpreted and stated she connects ?a lot? with communicating through behaviors. Pt reports ?I won?t talk and just assume that people know what I need? and pt reports ?this doesn?t end well.? Benefited from increased awareness of different communication styles and the importance of communicating effectively to improve mental wellness. Will continue IOP tx to gain healthy coping skills, reduce intensity of symptoms, and improve functioning. Narrative Note: []
--- NOTE | 2021-04-05 11:10 | BH.SGPN.GN ---
Behaviors/Verbalizations/Mental Status:Eye contact is good. Motor activity is appropriate. Appearance is casual. Speech is Appropriate. Mood is euthymic. Affect is constricted. Thoughts are linear and logical. No evidence of psychosis. Client Response/Progress/Benefit: []Pt was a passive participant in group discussion. Attentive during psychoeducation on communication styles (Passive, Passive-Aggressive, Aggressive, and Assertive) and benefits/disadvantages to each style. Along with peers pt participated in providing insight into the benefits to effective communication on mental health. Pt along with peers able to identify ways that communication can be misinterpreted through tone, texting, body language and assumptions. Pt identified most often using passive-aggressive communication style. Reported she wants to work on mindfulness to improve communication. Benefited from increased awareness of different communication styles and the importance of communicating effectively to improve mental wellness. Will continue in IOP to improve daily functioning, increase healthy coping skills, and prevent decompensation. Narrative Note: []
--- NOTE | 2021-04-10 09:05 | BH.SGPN.GN ---
Behaviors/Verbalizations/Mental Status: Eye contact is good. Motor activity is appropriate. Appearance is casual. Speech is appropriate. Mood is stressed. Affect is congruent. Thoughts are linear and logical. No evidence of psychosis. Reviewed daily symptom tracker sheet with no reports of suicidal ideations, plan, or intent. Client Response/Progress/Benefit: Client was attentive and engaged throughout group session. Client appeared stressed, and discussed stressor of frequently being held over at work. 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 An additional stressor client identified was feeling as though she is in a ?bad mood? all of the time, which clinician linked to her job situation. Clinician and group suggested client set boundaries with her place of employment, and utilize self-care to combat ?bad mood,? which client seemed to benefit from. Reported a win of taking her kids to [employer], which she stated went well. Will continue IOP to improve boundary setting and increase application of healthy coping skills. Narrative Note: []
--- NOTE | 2021-04-10 11:15 | BH.SGPN.GN ---
Behaviors/Verbalizations/Mental Status: []Client alert and oriented, casually dressed and groomed. Eye contact good. Motor activity appropriate. Speech within normal limits. Affect constricted, mood anxious. Thoughts linear, logical, no signs of hallucinations or delusions. Client Response/Progress/Benefit: []Client responded well to session, contributing during discussion and receptive to supportive feedback. Client identified a negative thought that has kept her stuck. Client's thought was I?m not a good enough mom.? Client reported when she thinks this way, she beats herself up, thinks ?I?ll never get better,? and doubts that she will be a good role model for her children. Client worked to reframe the thought by finding more rational, realistic ways to look at the thoughts and then processed within group setting. Client reframed the thought to ?I?m the one my kids turn to when they are excited or not feeling well.? Client stated she will use dialectical thinking to continue challenging negative self-talk. Client appeared to benefit from practicing challenging negative thinking. Client will continue IOP tx to reduce negative self-talk, set healthy boundaries, and improve mood stability. Narrative Note: []
--- NOTE | 2021-04-10 12:06 | PCM.BH.PN_ITS ---
Progress Note Progress Note: And history of Present Illness/Interim History: [] The patient is a 20-year-old female who is seen in follow-up at the [facility] behavioral health IOP program. I last saw the patient 3 weeks ago and at that time Lexapro was restarted with the prescription that she had at home. The patient states that she is taking 15 mg of Lexapro daily but is not tolerating it very well. She states that she had feels it has increased her anxiety and that her mood continues to be numb and anxious and depressed. She continues to endorse feeling somewhat hopeless and worthless. Mood remains depressed and irritable and at times numb. Appetite is variable but she denies any purging and denies any vomiting ever in recent years. She is tired and has low energy level during the day. It is hard for her to motivate herself. However she states that she is enjoying her children and is able to take care of her 6-week-old baby girl. She does not feel like her mood has worsened in the last few weeks. She denies passive thoughts of , suicidal ideation, plan for suicide, homicidal ideation, delusions or hallucinations or taj. The patient admits that she does not like to take medication and has a great fear of having side effects of medications and of gaining weight on medications. Current Psychiatric Medications: [] Lexapro 15 mg p.o. daily (times several weeks now) Mental Status Examination: [] The patient is a 20-year-old female who is seen wearing a mask due to the pandemic and is casually dressed and groomed with good hygiene. She has no psychomotor agitation or retardation. Eye contact is good and speech is normal rate and rhythm and fluent with no pressure. Mood is depressed. Affect is constricted. Thought process is goal-directed and organized. Thought content: There is no evidence of passive thoughts of , suicidal ideation, plan for suicide, homicidal ideation, hallucinations or delusions. Judgment is intact. Insight: Some present. Impulsivity: Low. Diagnoses: [] 1. Major depressive disorder, recurrent, severe without psychosis 2. Generalized anxiety disorder 3. Cluster B traits 4. Primary support (marital and child) issues and financial stress Plan: [] The patient will continue the IOP program at [facility] as the structure, support, education, and group therapy will hopefully prevent worsening of the patient's symptoms that might require hospitalization. She felt safe during the interview and if it anytime she does not feel safe she will let us know or go to the emergency room. The risk, options, and possible complications or side effects of the medications were discussed with the patient and she understands and accepts these. She will discontinue the Lexapro today. She agrees to try Wellbutrin XL 150 mg p.o. every morning. She understands that if she becomes ill and or vomits she should stop her Wellbutrin as there is a risk of seizure if she vomits on Wellbutrin. She understands though that she is taking a low-dose of Wellbutrin and should be able to avoid this complication. She understands that Wellbutrin will not cause weight gain and may help her to lose some weight. I will see the patient in follow-up in 1 to 2 weeks and she will continue to follow-up with her outpatient providers.
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
--- NOTE | 2021-04-23 09:05 | BH.SGPN.GN ---
Behaviors/Verbalizations/Mental Status: [] Eye contact is good. Motor activity is appropriate. Appearance is disheveled. Speech is Appropriate. Mood is depressed. Affect is flat. Thoughts are linear and logical. No evidence of psychosis. Reviewed daily check in sheet and no reports of suicidal ideations or intent. Client Response/Progress/Benefit: [] Pt participated when prompted. Attentive. Emotion is irritable. States i just woke up. Shared that she has not been to IOP in over a week and noticed herself decompensating. She could not identfiy any mental health wins stating I guess I showed up today. Reports no improvement in mood since last session and did not elaborate much during her check-in. No progress noted as she has missed IOP for the last week. Limited benefit from group aside from support from peers. Will continue in IOP to prevent decompensation, increase healthy coping skills, and stabilize mood. Narrative Note: []
--- NOTE | 2021-04-23 10:15 | BH.SGPN.GN ---
Behaviors/Verbalizations/Mental Status: []Client alert and oriented, casually dressed and groomed. Eye contact good. Motor activity appropriate. Speech within normal limits. Affect constricted, mood dysthymic. Thoughts linear, logical, no signs of hallucinations or delusions. Client Response/Progress/Benefit: []Client was an engaged participant AEB listening attentively to others, taking notes, and staying engaged with group activity. Connected with the topic of pitfalls and helped the group discuss barriers that keep them from choosing a healthier path to mental wellness such as pitfalls. Client stated personal growth won't happen if stay in comfort zone. Group worked together to identify examples of personal pitfalls which included: negative thoughts, avoidance of things need to do, seek external validation, limited self-reflection, and maintaining toxic relationships. Client benefited from group with increased understanding of impact personal pitfalls can have on mental health. Client will continue IOP to improve self-confidence, challenge distorted thoughts and prevent decompensation. Narrative Note: []
--- NOTE | 2021-04-23 11:15 | BH.SGPN.GN ---
Behaviors/Verbalizations/Mental Status: []Client alert and oriented, casually dressed. Eye contact good. Motor activity appropriate. Speech within normal limits. Affect flat, mood depressed and irritable. Thoughts linear, logical, no signs of hallucinations or delusions Client Response/Progress/Benefit: []Client receptive of session, engaged throughout AEB client actively listening and contributing to discussion, as well as taking notes. Client completed worksheet identifying personal pitfalls impacting mental health progress. Client identified the following pitfalls: not putting effort into goals, procrastination, and wanting control over too many things. Group learned different coping skills to help manage pitfalls. Client selected not putting effort into goals as the pitfall client wants to overcome. Client plans to work on this by setting smaller, more realistic goals to help client get her own place. Benefited from identifying personal pitfalls and strategies to overcome these pitfalls. Client's attendance has been variable lately which has impacted client's ability to make progress. Will continue IOP tx to prevent decompensation, increase consistent application of coping skills, and increase healthy support. Narrative Note: []
--- NOTE | 2021-04-25 09:00 | BH.SGPN.GN ---
Behaviors/Verbalizations/Mental Status: []Pt eye contact fair, casually dressed, motor activity appropriate, speech normal rate and tone, mood depressed and irritable. constricted affect, thoughts linear and intact, no evidence of delusions or hallucinations. Reviewed client?s symptom tracker, no signs of suicidal ideation, plan, or intent as of today. Client Response/Progress/Benefit: []Pt responded well to session AEB listening attentively to group, providing feedback and sharing thoughts and feelings. Pt stated mental health positive as enrolling son in preschool. Pt reported additional she's been struggling with feeling irritable and numb. Pt reported continued relationship stress. Pt progress hindered by inconsistent attendance, home stressors and difficulty applying skills consistently. Pt to continue IOP to increase consistent utilization of healthy coping, challenge negative thoughts and prevent decompensation. Narrative Note: []
--- NOTE | 2021-04-25 10:06 | BH.SGPN.GN ---
Behaviors/Verbalizations/Mental Status: []Eye contact is good. Motor activity is appropriate. Appearance is disheveled. Speech is Appropriate. Mood is overwhelmed and stressed. Affect is constricted. Thoughts are linear and logical. No evidence of psychosis Client Response/Progress/Benefit: []Pt was an engaged participant in group discussion, providing input and was attentive during psychoeducation. Participated in short activity about automatic thoughts and shared that mood and past experiences can impact automatic thoughts. Group was primarily educational; therapist introduced and gave examples of the most common cognitive distortions. Benefited from education and increased awareness of cognitive distortions and the role that they play our behaviors and emotions. Pt reported connecting with distortions such as labeling, catastrophizing, and all or nothing thinking. Shared she often labels herself as not good enough which reinforces depression. Will continue IOP tx to increase healthy boundary setting, increase healthy supports, and prevent decompensation. Narrative Note: []
--- NOTE | 2021-04-25 14:27 | BH.MDN_ITS ---
Multi-Disciplinary Note - Note 30-min Individual Time Started:: 11:10 Date: 04/25/21 Purpose of session/treatment goals addressed:: Purpose of session was to address goal 1 from MTP. Eye Contact:: Fair Motor Activity:: Restless Appearance:: Casual Speech:: Appropriate Mood:: Depressed Affect:: Flat Thoughts:: Linear, Logical, No evidence of hallucinations/delusions noted Staff Interventions:: thought challenging, motivational interviewing, CBT techni ques, strengths perspective, goal setting Client Response:: Pt reported she has been struggling for the last two weeks. Pt stated she missed IOP all of last week becasue she had a lot going on. Pt reported continued issues and conflict with her boyfriend. Pt stated her boyfriend does not have any structure or boundaries with their children when she is at work. Pt reported when she gets home after 10pm the kids are still awake for her to put to bed. Pt stated she has not been getting enough sleep because she doesn't get home from work until after 11pm, puts the kids to bed then needs time by herself to decompress. Pt reported she doesn't have the support from her boyfriend to care for their kids during the day time so she can take time for self-care. Pt reported she is feeling irritable and detached most days. Pt stated she recognizes she can't blame her relationship for everything. Pt reported she hasn't been putting forth the effort to try and improve her mood when she wakes up in a bad mood. Pt stated she believes focusing on getting her sleep routine as the most important goal to focus on. Pt reported she wants to be in bed by midnight every night. Pt stated she believes this will help decrease her irritability throughout the day. Risks/Concerns:: denies suicidal/homicidal ideation, plan or intention to date. Progress Toward Goals/Plan:: Pt progress limited AEB pt continuing to struggle with daily irritability, feeling disconnected and depressed mood. Appears barriers to treatment progress are lack of sleep, limited social support, relationship problems, and not consistently applying skills. Pt to continue IOP to increase consistent use of coping skills, challenge negative thoughts and pre vent decompensation. Time Stopped:: 11:40
--- NOTE | 2021-04-30 10:20 | BH.SGPN.GN ---
Behaviors/Verbalizations/Mental Status: []Client alert and oriented, casually dressed and groomed. Eye contact good. Motor activity appropriate. Speech within normal limits. Affect flat, mood overwhelmed. Thoughts linear, logical, no signs of hallucinations or delusions. Client Response/Progress/Benefit: []Pt was mostly a passive participant in group discussions and activity. Attentive during psychoeducation. Along with peers provided insight into topics discussed which included; What is social support? Why is social support important? What are the benefits of using our supports? How does a lack of strong social supports impact our mental health and symptom management? Pt was mostly quiet during the discussions, but she took on a leadership role in activity and was able to connect the activity to the topic of creating and maintaining a balance of social supports. Benefited from increased awareness of the benefits to a balanced social support and barriers to utilizing social support. Will continue in IOP to prevent decompensation, gain healthy coping skills, and increase knowledge of area resources to help increase independence. Narrative Note: []
--- NOTE | 2021-04-30 11:18 | BH.SGPN.GN ---
Behaviors/Verbalizations/Mental Status: []Client alert and oriented, casually dressed and groomed. Eye contact good. Motor activity appropriate. Speech within normal limits. Affect constricted, mood agitated, depressed. Thoughts linear, logical, no signs of hallucinations or delusions. Client Response/Progress/Benefit: []Client an active participant throughout AEB contributing to discussion when prompted and taking notes. Client participated in the group activity highlighting the various barriers to effectively utilizing supports and strategies for improving support. Participated in discussion of the 5 ways our supports can support us (emotional, tangible, affirmational, network/belonging, and instructional) and the group listed examples for all types. Client reports wanting to work on increasing appraisal supports, noting this will help her better recognize which of her supports are healthy and which are not, improve emotion regulation, and acknowledge where she is making progress. Client plans to do this by starting to keep an accomplishment log and mood tracker to gain awareness of when she is beginning to struggle and prevent from further setbacks. Client seemed to benefit from identifying the type of support and how this support will aid in promoting overall mental wellness. Will continue with IOP tx to improve boundary setting, improve mood stability, and prevent decompensation. Narrative Note: []
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
== END 2021-05-05 23:59 ==
LOC: BHIOP 09:00
PROVIDERS: PCP Family Medicine; Referring Provider Psychiatry & Neurology Psychiatry; Visit Provider Psychiatry & Neurology Psychiatry
DX: F33.2 Major depressive disorder, recurrent severe without psychotic features (principal); F41.1 Generalized anxiety disorder; Z79.899 Other long term (current) drug therapy
CPT/HCPCS: 99213; H2012; H2020; S9480; 90832; 90834

== ENCOUNTER 2021-06-25 13:02 | Outpatient (RCR) | payer MEDICAID, SELFPAY | END 2021-07-05 23:59 | LOC: NS 13:02 | PROVIDERS: PCP Family Medicine; Visit Provider Family Medicine | DX: Z71.3 Dietary counseling and surveillance (principal); E66.9 Obesity, unspecified; Z68.38 Body mass index [BMI] 38.0-38.9, adult | CPT/HCPCS: 97802 ==

== ENCOUNTER 2021-08-19 12:44 | Emergency (ER) | payer MEDICAID, SELFPAY ==
[2021-08-19 13:04] VITALS: BP 127/75; PULSE 72; RESP 18; TEMP 36.6; O2SAT 100; BMI 39.1
--- NOTE | 2021-08-19 14:44 | ED.VIS.BACK ---
HPI History of Present Illness Chief Complaint: Back Informant: patient Onset/Context/Timing Onset: Today Injury: fall Timing: Continuous Quality: Sharp Location: Lumbar Current Severity: Mild Maximum Severity: Mild Worsened by: improves with Movement Relieved by: Remaining Still Associated Symptoms Associated Symptoms: Negative for Numbness, Tingling, Radiation to Right Leg, Radiation to Left Leg, Fever, Abdominal Pain, Dysuria, Unable to Ambulate, Unable to Transfer, Urinary Retention, Urinary Incontinence, Constipation and Fecal Incontinence Narrative Narrative: 21-year-old female history of anxiety. Prior C-sections x3. States she slipped and fell yesterday falling forward. Today she noticed she has having right lower back pain which caused her to fall again. She does not think she injured her back yesterday. She denies any back history or prior back surgeries. She denies any recent illness. She has had no fevers. No dysuria. Her last menstrual period was about 2 weeks ago. Prior similar symptoms: No PFSH PFSH Medical History Generalized anxiety disorder Major depressive disorder, recurrent severe without psychotic features macrosomia Home Medications bupropion HCl [Wellbutrin XL] 150 mg PO DAILY 30 Days #30 tab 04/10/21 [Rx Last Taken Unknown] Allergy/AdvReac Type Severity Reaction Status Date / Time No Known Allergies Allergy Verified 08/19/21 13:07 Surgical History History of section History of tonsillectomy Social History Smoking Status: Light Smoker (<10/day) ROS ROS ED ROS Narrative Denies recent illness. Review of Systems ROS Unobtainable: Denies due to encephalopathy Constitutional Constitutional ED: Denies fever(s) Eyes Eyes: Denies change in vision ENT ENT ED: Denies ear pain Cardiovascular Cardiovascular: Denies chest pain Respiratory/Chest Respiratory/Chest: Denies dyspnea Gastrointestinal Gastrointestinal: Denies abdominal pain, diarrhea, nausea or vomiting Musculoskeletal Musculoskeletal: Reports back pain; Denies arthralgias, myalgias or neck pain Integumentary Denies rash Neurologic Neurologic: Denies headache(s) Psychiatric Psychiatric: Denies depression Endocrine Endocrinology: Denies polyuria Hematologic/Lymphatic Hematologic/Lymphatic: Denies easy bruising Allergic/Immunologic Allergic/Immunologic ED: Denies urticaria EXAM Physical Exam Narrative Exam Narrative: 21-year-old female no acute distress. Vital signs stable afebrile. H EENT exam unremarkable atraumatic. Moist mucous members. C-spine nontender. Trachea midline. Lungs clear to auscultation bilaterally. Heart regular rhythm rate about 70 no murmur. Chest wall nontender. Abdomen soft nontender normal bowel sounds no peritoneal signs. Patient moving all 4 extremities. Neurovascularly intact. Normal [employer] strength. Normal dorsi plantar flexion. Normal strength and sensation both upper and lower extremities. No cauda equina. No saddle anesthesia. Cervical and thoracic spine nontender. Upper lumbar spine tenderness. No ecchymosis or bruising. No redness or warmth. No signs of trauma. Neurologic exam normal. Awake alert. Normal motor strength and sensation. Const Vital Signs: 08/19/21 13:04 Temperature 97.9 F Temperature Source Temporal Pulse Rate 72 Respiratory Rate 18 Blood Pressure 127/75 H Blood Pressure Mean 92 Pulse Ox 100 Positive well nourished, well developed and obese; Negative for cachectic, contractures or unkempt General Appearance ED: well developed and NAD; Negative for unkempt, cachectic, contractures or pallor Nutritional Appearance: obese; Negative for cachectic HEENT Reports moist mucous membranes Negative for trauma or tenderness Eyes PERRL and EOMs intact bilaterally General Eye ED: Negative for pale conjunctiva or scleral icterus Neck no lymphadenopathy, supple and no JVD General: Negative for tenderness Resp normal respiratory effort and clear to auscultation bilaterally Effort and Inspection: Negative for pain with movement or other Auscultation: Negative for rales, rhonchi or wheezes Cardio regular rate, regular rhythm, S1 normal heart sound, S2 normal heart sound and no murmurs GI normal to inspection, nondistended, normoactive bowel sounds, soft to palpation, non-tender, non-distended and no masses Inspection: Negative for abdominal distention Palpation: Negative for tender, guarding or rebound tenderness present Back/Spine normal to inspection; Negative for no thoracic nor lumbar tenderness Back/Spine Narrative: Tenderness lumbar spine. No bruising. No signs of trauma. General Back: Negative for CVA tenderness or scar(s) Cervical Spine: Negative for cervical spine tenderness and Negative for paracervical muscle tenderness Thoracic Spine / Upper Back: Negative for paraspinal muscle tenderness Lumbar Spine / Lower Back: straight leg raise negative bilaterally Extremity normal to inspection General Extremety ED: Negative for edema or tenderness General Extremity: Negative for edema Neuro oriented x3 and no sensory deficits noted Neuro Narrative: No cauda equina. No saddle anesthesia. Normal motor strength both upper and lower extremities. No sensation. Sensorium / Orientation: alert; Negative for confused, lethargic or stuporous Motor Exam: strength 5/5 throughout; Negative for strength abnormal Psych mental status grossly normal Appearance: Negative for unkempt Attitude: No agitated and No other Mood & Affect: Negative for depressed or tearful Skin no rashes or lesions noted and no wounds General Skin Exam: Negative for jaundice or pallor MDM MDM MDM Narrative Medical decision making narrative: 21-year-old fell yesterday while low back pain. Exam benign Lumbar tenderness. X-ray being obtained. She was treated with Toradol and brought in by the squad today. She did not currently want a thing for pain. Repeat exam unchanged. Patient most likely has a lumbar contusion or strain. Will be treated with Motrin and Tylenol. Ice and heat. Follow-up if not improving. Radiography X-Ray: LS SPine Diagnostic Testing: Lumbar spine x-ray 4 views showed no acute abnormality. Interpreted by myself. Normal lumbar spine. No compression fractures. No other acute abnormalities. Discharge Plan Triage Chief Complaint: Back ED Provider: Francois Alcala Dx/Rx/DC Orders Clinical Impression: Acute lumbar myofascial strain, Fall Instructions: ED Back Sprain/Strain Prescriptions: No Action bupropion HCl [Wellbutrin XL] 150 mg tablet extended release 24 hr 150 mg PO DAILY 30 Days Qty: 30 RF: 0 Primary Care Provider: Jeanne Young Referrals: Jeanne Young DO [Primary Care Provider] - 3-5 Days if not improving Activity Restrictions/Additional Instructions: Hot shower, warm bath and heat to your back to decrease the pain and relax the muscles. Motrin for pain and inflammation. Tylenol also for pain. Massage. Follow-up with your doctor if not improving or return if worse. Your x-rays today were unremarkable. Disposition Disposition: Home, Self Care
--- NOTE | 2021-08-19 15:04 | RAD_ITS ---
STUDY: X-RAY - LUMBAR SPINE REASON FOR EXAM: Female, 21 years old. Pain TECHNIQUE: 4 view(s) of the lumbar spine were obtained. COMPARISON: None FINDINGS: Normal lumbar lordosis. There is no substantial scoliosis. There is a normal alignment of the vertebrae. There is multilevel endplate spondylosis of the lumbar vertebrae. Normal disc space heights. The soft tissue structures are unremarkable. RAD/L/S Spine Min 4 Views IMPRESSION: Endplate spondylosis at the L1-L2, L3 and L4 levels. Electronically Signed: Geraldo Munson MD at 15:19 EST ,
[2021-08-19 15:21] VITALS: RESP 14
== END 2021-08-19 15:22 | disposition home or self-care (01) ==
PROVIDERS: Emergency Provider Emergency Medicine; PCP Family Medicine; Visit Provider Emergency Medicine
DX: S39.012A Strain of muscle, fascia and tendon of lower back, initial encounter (principal); F33.2 Major depressive disorder, recurrent severe without psychotic features; W01.0XXA Fall on same level from slipping, tripping and stumbling without subsequent striking against object, initial encounter; F17.200 Nicotine dependence, unspecified, uncomplicated; F41.1 Generalized anxiety disorder; E66.9 Obesity, unspecified; Z68.39 Body mass index [BMI] 39.0-39.9, adult; Z79.899 Other long term (current) drug therapy
CPT/HCPCS: 72110; 99284

== ENCOUNTER 2022-09-15 17:08 | Emergency (ER) | payer MEDICAID, SELFPAY ==
[2022-09-15 17:09] VITALS: BP 128/71; PULSE 79; RESP 14; TEMP 36.6; O2SAT 100; BMI 36.5
--- NOTE | 2022-09-15 18:13 | US_ITS ---
EXAM: US , TRANSVAGINAL CLINICAL INDICATION: pain -- medication induced 09/03 - quant rising TECHNIQUE: Real-time transvaginal obstetrical ultrasound of the maternal pelvis and a first trimester with image documentation. Transvaginal imaging was used for better evaluation of the fetus and adnexa. This report was created using [employer] report generation technology. COMPARISON: None. FINDINGS: GESTATION: A gestational sac mean sac diameter of 1.3 cm age 6 weeks 1 day. There is no evidence of a yolk sac or pole. PLACENTA/AMNIOTIC FLUID: Cannot be adequately evaluated due to the early gestational age. UTERUS/CERVIX: The uterus measures 12.0 x 5.5 x 7.6 cm. No myometrial mass. OVARIES: The right ovary measures 4.6 x 2.5 x 3.1 cm. There is a 1.6 x 1.4 x 1.2 cm anechoic structure in the right ovary compatible with a cyst. The left ovary measures 3.6 x 1.7 x 2.3 cm. No mass. FREE FLUID: No free fluid. US/Transvaginal w/Preg US IMPRESSION: Gestational sac age 6 weeks 1 day. There is no evidence of a pole. Ultrasound estimated due date is 05/10/2023. There is an anechoic structure in the right ovary which may represent an ovarian cyst. Electronically Signed: Flip Green MD at 20:14 EDT ,
--- NOTE | 2022-09-15 18:18 | ED.VIS.FEGU ---
HPI HPI - Female History of Present Illness Chief Complaint: Detail of Chief Complaint: Possible tubal Informant: patient Narrative Narrative: Patient presents secondary to possible tubal . She was seen at [facility] in [place] for medication induced . She was given pills on September 03. She states in spite of this her hCG level continues to rise. They tried to do a an ultrasound in the office but states the machine was not very good and they were not able to see the fallopian tubes or ovaries. She states that they have seen some kind of a round mass that is empty in the uterus since that time she was initially diagnosed as . She does have records indicating that on September 04 her quant was 1214, September 07 it was 1771, and September 13 it was [id number]. Her blood type is A+. [facility] Medical History Generalized anxiety disorder Major depressive disorder, recurrent severe without psychotic features macrosomia Home Medications bupropion HCl 150 mg 24 hr tablet, extended release (Wellbutrin XL) 150 mg PO DAILY 30 days #30 tabs 04/10/21 [Rx Last Taken Unknown] Allergy/AdvReac Type Severity Reaction Status Date / Time No Known Allergies Allergy Verified 09/15/22 17:11 Surgical History History of section History of tonsillectomy Social History Smoking Status: Light Smoker (<10/day) [facility] ED Constitutional Constitutional ED: Denies chills or fever(s) Eyes Eyes: Denies change in vision or discharge from eye(s) ENT ENT ED: Denies discharge from eye(s), rhinorrhea or sore throat Cardiovascular Cardiovascular: Denies chest pain or palpitations Respiratory/Chest Respiratory/Chest: Denies cough or dyspnea Gastrointestinal Gastrointestinal: Denies abdominal pain, nausea or vomiting Genitourinary Genitourinary ED: Denies dysuria Musculoskeletal Musculoskeletal: Denies back pain or extremity pain Integumentary Denies Abrasions or rash Neurologic Neurologic: Denies headache(s) or weakness Psychiatric Psychiatric: Denies anxiety or depression Allergic/Immunologic Allergic/Immunologic ED: Denies lip swelling or urticaria EXAM Physical Exam Const Vital Signs: 09/15/22 17:09 Temperature 97.9 F Temperature Source Temporal Pulse Rate 79 Respiratory Rate 14 Blood Pressure 128/71 H Blood Pressure Mean 90 Pulse Ox 100 Oxygen Delivery Method Room Air Positive well nourished and well developed General Appearance ED: well developed HEENT Reports normocephalic and head/scalp atraumatic Eyes PERRL and EOMs intact bilaterally Neck supple Chest Wall inspection of chest normal and palpation of chest normal Resp normal respiratory effort and clear to auscultation bilaterally Cardio regular rate and regular rhythm GI normal to inspection, nondistended, normoactive bowel sounds Palpation: soft Back/Spine no CVA tenderness Extremity normal to inspection Neuro oriented x3 and no sensory deficits noted Sensorium / Orientation: alert Motor Exam: strength 5/5 throughout Psych mental status grossly normal Skin no rashes or lesions noted MDM MDM MDM Narrative Medical decision making narrative: Repeat quant is obtained today as the last lab work she had drawn was on the . Pelvic ultrasound is performed. I did review records and confirmed that her blood type is a positive. Lab Data Labs: Laboratory Results - last 24 hr 09/15/22 18:20 HCG, Quant [id number] H Radiography Diagnostic Testing: Clinical Impression(s) from Imaging Studies Obstetrics Ultrasound 09/15/22 18:13 IMPRESSION: Gestational sac age 6 weeks 1 day. There is no evidence of a pole. Ultrasound estimated due date is 05/10/2023. There is an anechoic structure in the right ovary which may represent an ovarian cyst. Electronically Signed: Flip Green MD at 20:14 EDT , Treatment and Re-Evaluation Narrative: hCG quant today is 7886. While her quant is continuing to rise, it is not doubling every 48 hours as would be expected with a normal . Pelvic ultrasound reveals a gestational sac at 6-week and 1 day. There is no evidence of a pole. There is an anechoic structure in the right ovary which may represent an ovarian cyst. No evidence of an ectopic is noted at this time. Patient is not having any bleeding or pain. I spoke Dr. Danyelle Osorio, on-call for [employer] no doc. She is happy to see the patient in follow-up at her office in [place]. This information will be provided for the patient. Discharge Plan Triage Chief Complaint: ED Provider: Jenelle Weldon Dx/Rx/DC Orders Clinical Impression: First trimester Instructions: 1st Trimester Prescriptions: No Action bupropion HCl [Wellbutrin XL] 150 mg tablet extended release 24 hr 150 mg PO DAILY 30 Days Qty: 30 0RF Primary Care Provider: Jeanne Young Referrals: Jeanne Young DO [Primary Care Provider] - Maddison Chamorro MD [Med Staff - Active Staff] - 3-5 Days Disposition Disposition: Home, Self Care
[2022-09-15 20:02] LABS: hCG Titer Quant., Serum 7886 mIU/mL (1-3)
[2022-09-15 20:41] VITALS: BP 122/87; PULSE 67; RESP 18; O2SAT 100
== END 2022-09-15 20:42 | disposition home or self-care (01) ==
PROVIDERS: Emergency Provider Emergency Medicine; PCP Family Medicine; Visit Provider Emergency Medicine
DX: O03.89 Complete or unspecified spontaneous abortion with other complications (principal); O99.331 Smoking (tobacco) complicating pregnancy, first trimester; F17.200 Nicotine dependence, unspecified, uncomplicated
CPT/HCPCS: 76817; 84702; 99283; A4216

== ENCOUNTER 2023-01-25 20:40 | Emergency (ER) | payer MEDICAID, SELFPAY ==
[2023-01-25 20:44] VITALS: BP 118/84; PULSE 77; RESP 18; TEMP 36.8; O2SAT 99; BMI 37.1
--- NOTE | 2023-01-25 21:25 | EDS_ITS ---
HPI History of Present Illness Chief Complaint: Dental Informant: patient Onset/Context/Timing Onset: Days Context: Gradual Onset Timing: Continuous Current Severity: Moderate Maximum Severity: Moderate Relieved by: NSAIDs Associated Symptoms Assocated Symptom - Dental: Negative for fever, jaw swelling, face swelling, cold sensitivity or hot sensitivity Narrative Narrative: 22-year-old female significant past medical history. Has a right lower jaw last molar that needs to be pulled. She has not been able to get into any way that will take her insurance to pull the molar. She had a prior cavity. And now the gum has grown over the last molar. She was just recently on antibiotics. Antibiotics were finished. Now she is having pain and minimal swelling again. No fever. No trouble swallowing or breathing. Prior similar symptoms: Yes Recent Illness/Hospitalization: No PFSH PFSH Medical History Generalized anxiety disorder Major depressive disorder, recurrent severe without psychotic features macrosomia Home Medications bupropion HCl 150 mg 24 hr tablet, extended release (Wellbutrin XL) 150 mg PO DAILY 30 days #30 tabs 04/10/21 [Rx Last Taken Unknown] Allergy/AdvReac Type Severity Reaction Status Date / Time No Known Allergies Allergy Verified 01/25/23 20:44 Surgical History History of section History of tonsillectomy Social History Smoking Status: Current every day smoker tobacco type: cigarettes ROS ROS ED ROS Narrative Dental pain. Review of Systems ROS Unobtainable: Denies due to encephalopathy Constitutional Constitutional ED: Denies chills or fever(s) ENT ENT ED: Denies ear pain Cardiovascular Cardiovascular: Denies chest pain Respiratory/Chest Respiratory/Chest: Denies cough Gastrointestinal Gastrointestinal: Denies abdominal pain Genitourinary Genitourinary ED: Denies dysuria Musculoskeletal Musculoskeletal: Denies arthralgias Integumentary Denies abscess Neurologic Neurologic: Denies headache(s) Psychiatric Psychiatric: Denies anxiety Endocrine Endocrinology: Denies cold intolerance Hematologic/Lymphatic Hematologic/Lymphatic: Denies easy bleeding Allergic/Immunologic Allergic/Immunologic ED: Denies mouth swelling, tongue swelling or urticaria EXAM Physical Exam Narrative Exam Narrative: 21-year-old female no acute distress. Vital signs stable afebrile. HEENT exam last lower molar in the very back is tender palpation her skin grown over. No significant swelling. No obvious abscess. No facial swelling. No trouble breathing or swallowing. The rest of her dentition is in very good shape. No swelling underneath her tongue. Neck nontender. No lymphadenopathy. Lungs clear. Heart regular rhythm no murmur. Otherwise exam unremarkable. Const Vital Signs: 01/25/23 20:44 Temperature 98.3 F Temperature Source Temporal Pulse Rate 77 Respiratory Rate 18 Blood Pressure 118/84 H Blood Pressure Mean 95 Pulse Ox 99 Oxygen Delivery Method Room Air Positive well nourished and well developed; Negative for cachectic, contractures or unkempt General Appearance ED: well developed and NAD; Negative for unkempt, cachectic, contractures or pallor Nutritional Appearance: Negative for cachectic HEENT Denies other HEENT Narrative: Tender right lower last molar. Gum is grown over the tooth. Negative for trauma, tenderness or other Face and Sinus: sinuses nontender Mouth ED: Yes oral and palatal mucosa normal, Yes lips normal, Yes tongue normal, Yes salivary gland normal, No mouth trauma and No oral and palatal mucosa abnormal Mouth: oral and palatal mucosa normal, lips normal, tongue normal, salivary gland normal, No mouth trauma and No oral and palatal mucosa abnormal Teeth and Gingiva: abnormal tooth and associated gingiva; Negative for caries, poor dentition or teeth discoloration Throat: posterior oropharynx normal Eyes PERRL and EOMs intact bilaterally General Eye ED: Negative for pale conjunctiva or scleral icterus Neck no lymphadenopathy, supple and no JVD General: normal visual inspection; Negative for anterior neck swelling, tenderness or submandibular swelling Lymph Lymphatic: no lymphadenopathy noted; Negative for lymphadenopathy Chest Wall inspection of chest normal and palpation of chest normal Resp normal respiratory effort, no retractions and clear to auscultation bilaterally Cardio regular rate, regular rhythm, S1 normal heart sound, S2 normal heart sound and no murmurs Jugular Venous Distention: Negative for other Palpation: Negative for palpable S3 Rate: Negative for bradycardia Rhythm: Negative for abnormal rhythm GI normal to inspection, nondistended, normoactive bowel sounds, non-tender, non- distended and no masses Inspection: Negative for other Palpation: soft Back/Spine no CVA tenderness Extremity normal to inspection and no joint enlargement General Extremety ED: Negative for edema General Extremity: Negative for edema Neuro oriented x3, CN's II-XII intact bilaterally, moves all extremities and no focal motor deficits Sensorium / Orientation: alert, oriented to person, oriented to place and oriented to time Motor Exam: strength 5/5 throughout Psych mental status grossly normal Appearance: Negative for unkempt Attitude: No agitated and No other Mood & Affect: Negative for depressed, anxious or tearful Skin no rashes or lesions noted and no wounds General Skin Exam: Negative for pallor MDM MDM MDM Narrative Medical decision making narrative: 22-year-old female with right lower molar dental pain. She be placed on Pen-Vee K. Motrin and Tylenol for pain. Call her insurance to get a dentist that will pull her tooth. Discharge Plan Triage Chief Complaint: Dental ED Provider: Francois Alcala Dx/Rx/DC Orders Clinical Impression: Pain, dental Instructions: ED Dental Pain Prescriptions: No Action bupropion HCl [Wellbutrin XL] 150 mg tablet extended release 24 hr 150 mg PO DAILY 30 Days Qty: 30 0RF Primary Care Provider: Jeanne Young Referrals: Jeanne Young DO [Primary Care Provider] - Activity Restrictions/Additional Instructions: Ice to your jaw. Motrin Tylenol for pain. The antibiotic penicillin 1 pill 4 times a day till gone. Call your insurance they should have dentist they contract with. They continue to follow-up with to get your right lower molar pulled. Locally try either Dr. Nixon Neri or Dr. Marco Villanueva that may be ordered for your tooth. Disposition Disposition: Home, Self Care
[2023-01-25] MEDS: Penicillin Vk 250 MG Tablet 500 MG PO (21:42)
== END 2023-01-25 21:44 | disposition home or self-care (01) ==
PROVIDERS: Emergency Provider Emergency Medicine; PCP Family Medicine; Visit Provider Emergency Medicine
DX: K08.89 Other specified disorders of teeth and supporting structures (principal); F17.210 Nicotine dependence, cigarettes, uncomplicated
CPT/HCPCS: 99283

== ENCOUNTER 2023-03-05 12:02 | Outpatient (RCR) | payer MEDICAID, SELFPAY | END 2023-03-05 23:59 | LOC: NS 12:02 | PROVIDERS: PCP Family Medicine; Referring Provider Nurse Practitioner Family; Visit Provider Nurse Practitioner Family | DX: Z71.3 Dietary counseling and surveillance (principal); E28.2 Polycystic ovarian syndrome; E66.9 Obesity, unspecified; Z68.39 Body mass index [BMI] 39.0-39.9, adult | CPT/HCPCS: 97802 ==

== ENCOUNTER 2023-03-19 13:40 | Outpatient (RCR) | payer MEDICAID, SELFPAY | END 2023-04-04 23:59 | LOC: NS 13:40 | PROVIDERS: PCP Family Medicine; Referring Provider Nurse Practitioner Family; Visit Provider Nurse Practitioner Family | DX: E28.2 Polycystic ovarian syndrome (principal); E66.9 Obesity, unspecified; Z68.39 Body mass index [BMI] 39.0-39.9, adult | CPT/HCPCS: 97803 ==